=== PATIENT | female | born 1995 | race Caucasian/White ===

== ENCOUNTER 2018-03-18 06:10 | Emergency (ER) | payer OTHER ==
[2018-03-18] MEDS: PERCOCET 5MG/325MG TAB PO (07:48)
== END 2018-03-18 07:59 | disposition home or self-care (01) ==
LOC: M ED 06:10
DX: O99.89 Other specified diseases and conditions complicating pregnancy, childbirth and the puerperium (principal); M43.6 Torticollis; S16.1XXA Strain of muscle, fascia and tendon at neck level, initial encounter; X50.9XXA Other and unspecified overexertion or strenuous movements or postures, initial encounter; Y92.018 Other place in single-family (private) house as the place of occurrence of the external cause; Z3A.34 34 weeks gestation of pregnancy
CPT/HCPCS: 99282

== ENCOUNTER 2018-04-26 19:17 | Inpatient (IN) | payer OTHER ==
[2018-04-26 22:43] LABS: HEMATOCRIT 33.4 % (36.0-47.0); HEMOGLOBIN 11.3 g/dl (12.0-15.5); MEAN CORPUSCULAR HEMOGLOBIN 30.1 pg (27.0-33.0); MEAN CORPUSCULAR HGB CONC 33.8 g/dl (32.0-36.5); MEAN CORPUSCULAR VOLUME 88.8 fl (80.0-96.0); PLATELET COUNT, AUTOMATED 240 10^3/uL (150-450); RED BLOOD COUNT 3.76 10^6/uL (4.00-5.40); RED CELL DISTRIBUTION WIDTH 13.1 % (11.5-14.5); WHITE BLOOD COUNT 13.1 10^3/uL (4.0-10.0)
[2018-04-26] MEDS ORDERED: OXYTOCIN DRIP 30 UNITS in APPROPRIATE DILUENT 1 EA IV (22:45)
[2018-04-26] MEDS: BUTORPHANOL 2 MG/ML INJ (J0595) IV (23:41)
[2018-04-27] MEDS: LACTATED RINGER'S 1000 ML IV (01:22)
[2018-04-27] MEDS ORDERED: TERBUTALINE SULFATE 1 MG/ML VIAL (J3105) As Ordered (02:22)
[2018-04-27] MEDS: TERBUTALINE SULFATE 1 MG/ML VIAL (J3105) SC (02:24)
[2018-04-27] MEDS ORDERED: FENTANYL 2MCG/ML ROPIVACAINE 0.2% IN 0.9% NACL 200ML IVBAG As Ordered (03:16)
[2018-04-27] MEDS ORDERED: ONDANSETRON 4MG/2ML VIAL (J2405) IV (05:30)
[2018-04-27] MEDS ORDERED: diphenhydrAMINE INJ 50MG/ML VIAL (J1200) IV (05:30)
[2018-04-27] MEDS ORDERED: NALOXONE INJ 0.4 MG/1 ML VIAL (J2310) IV (05:30)
[2018-04-27] MEDS ORDERED: REFRIGERATOR IV KEYS XX (05:30)
[2018-04-27] MEDS ORDERED: LACTATED RINGER'S 1000 ML IV (05:30)
[2018-04-27] MEDS ORDERED: EPIDURAL COMMENT XX (05:30)
[2018-04-27] MEDS ORDERED: EPIDURAL/PCA KEYS XX (05:30)
[2018-04-27] MEDS ORDERED: ePHEDrine SULFATE 25 MG/5 ML(5MG/ML) SYRINGE IV (05:30)
[2018-04-27] MEDS ORDERED: FENTANYL/ROPIVACAINE/NACL BAG 200 ML EPIDURAL (05:30)
[2018-04-27] MEDS: LR 1,000 ML IV ×2 (06:28→08:21)
[2018-04-27] MEDS: ACETAMINOPHEN TAB 650MG DOSE (2X325MG) PO ×2 (08:22→17:44)
[2018-04-27 09:26] LABS: CORD GAS ABE V -9.3; CORD GAS HCO3 V 16.9 MEQ/L; CORD GAS PCO2 V 37.8 mmHg; CORD GAS PH V 7.268 UNITS; CORD GAS PO2 V 25.9 mmHg; CORD GAS TCO2 V 18.1 MEQ/L
[2018-04-27 09:28] LABS: CORD GAS O2 SAT V 40.2 %
[2018-04-27] MEDS: OXYTOCIN DRIP 30 UNITS in APPROPRIATE DILUENT 1 EA IV (10:28)
[2018-04-27] MEDS ORDERED: RHOGAM 300 MCG (1500 IU) INJ (J2790) IM (10:30)
[2018-04-27] MEDS ORDERED: METOCLOPRAMIDE INJ 10MG/2ML VIAL (J2765) IV (10:30)
[2018-04-27] MEDS ORDERED: MEASLES,MUMPS,RUBELLA VACCINE INJ (MMR-II) (90707) SC (10:30)
[2018-04-27] MEDS: IBUPROFEN 800 MG TAB PO ×2 (12:54→20:47)
[2018-04-27] MEDS: DOCUSATE SODIUM 100 MG CAP PO ×2 (12:54→20:46)
[2018-04-27] MEDS: PRENATAL VITAMINS CHEWABLE TABLET PO (12:54)
[2018-04-27] MEDS ORDERED: INFLUENZA QUADRIVALENT PF VACCINE 0.5ML SYRINGE (90686) IM (20:00)
[2018-04-27] MEDS: DIBUCAINE 1% OINTMENT 30GM TOP (20:50)
[2018-04-28] MEDS: IBUPROFEN 800 MG TAB PO ×2 (05:32→14:52)
[2018-04-28] MEDS: DOCUSATE SODIUM 100 MG CAP PO (08:23)
[2018-04-28] MEDS: PRENATAL VITAMINS CHEWABLE TABLET PO (08:23)
[2018-04-28] MEDS: INFLUENZA QUADRIVALENT PF VACCINE 0.5ML SYRINGE (90686) IM (12:11)
== END 2018-04-28 17:46 | disposition home or self-care (01) | DRG 775 ==
LOC: M LDO 19:17 → M LDI 22:23 → M OBS 04-27 11:29
PROVIDERS: Obstetrics & Gynecology
PROC: 10E0XZZ Delivery of Products of Conception, External Approach (ICD-10-PCS; principal; 2018-04-27)
PROC: 0HQ9XZZ Repair Perineum Skin, External Approach (ICD-10-PCS; 2018-04-27)
PROC: 10907ZC Drainage of Amniotic Fluid, Therapeutic from Products of Conception, Via Natural or Artificial Opening (ICD-10-PCS; 2018-04-27)
DX: O77.0 Labor and delivery complicated by meconium in amniotic fluid (principal); Z3A.39 39 weeks gestation of pregnancy; O76 Abnormality in fetal heart rate and rhythm complicating labor and delivery; O70.0 First degree perineal laceration during delivery; O69.2XX0 Labor and delivery complicated by other cord entanglement, with compression, not applicable or unspecified; Z37.0 Single live birth

== ENCOUNTER 2018-09-09 15:40 | Emergency (ER) | payer OTHER ==
[~2018-09-09] VITALS: Ht 172.7 cm; Wt 54.5 kg
[~2018-09-09 15:40] MED LIST: IBUP-1114 PO; MAPA500T2 PO; NUPE1OIN2 TOP; PRENTAB9 PO
[2018-09-09] MEDS ORDERED: METOCLOPRAMIDE 10 MG TAB PO ONE (16:15)
[2018-09-09] MEDS ORDERED: ACETAMINOPHEN 325 MG TAB PO ONE (16:15)
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
[2018-09-09] MEDS ORDERED: REGL10TA6 PO ×3 (17:04→17:30)
[2018-09-09] MEDS ORDERED: IBUP-1022 PO ×3 (17:04→17:30)
[2018-09-09 17:09] VITALS: BP 110/56
== END 2018-09-09 17:30 | disposition home or self-care (01) ==
LOC: M ED 15:40
DX: S13.9XXA Sprain of joints and ligaments of unspecified parts of neck, initial encounter (principal); V48.5XXA Car driver injured in noncollision transport accident in traffic accident, initial encounter; Y92.9 Unspecified place or not applicable; Y93.9 Activity, unspecified; Y99.9 Unspecified external cause status; Z72.0 Tobacco use; Z79.899 Other long term (current) drug therapy

== ENCOUNTER 2018-09-23 15:13 | Emergency (ER) | payer OTHER ==
[~2018-09-23] VITALS: Ht 172.7 cm; Wt 54.5 kg
[~2018-09-23 15:13] MED LIST changes: +IBUP-1022 PO; +REGL10TA6 PO
[2018-09-23 16:33] VITALS: BP 105/53
== END 2018-09-23 16:36 | disposition home or self-care (01) ==
LOC: M ED 15:13
DX: F07.81 Postconcussional syndrome (principal); F17.200 Nicotine dependence, unspecified, uncomplicated

== ENCOUNTER 2018-11-24 18:13 | Emergency (ER) | payer OTHER ==
[~2018-11-24] VITALS: Ht 172.7 cm; Wt 57.5 kg
[2018-11-24] MEDS ORDERED: CELE1CAP7 (18:19)
[2018-11-24] MEDS ORDERED: TIZA4TAB4 (18:19)
[2018-11-24] MEDS ORDERED: IBUPROFEN 800 MG TAB PO ONE (18:30)
[2018-11-24 19:11] LABS: INFLUENZA A AMPLIFICATION NEGATIVE (NEGATIVE); INFLUENZA B AMPLIFICATION NEGATIVE (NEGATIVE)
[2018-11-24 20:33] VITALS: BP 96/55
== END 2018-11-24 20:52 | disposition home or self-care (01) ==
LOC: M ED 18:13
DX: B34.9 Viral infection, unspecified (principal); Z20.828 Contact with and (suspected) exposure to other viral communicable diseases; F17.210 Nicotine dependence, cigarettes, uncomplicated; Z79.899 Other long term (current) drug therapy; Z79.2 Long term (current) use of antibiotics

== ENCOUNTER 2019-08-29 15:10 | Emergency (ER) | payer OTHER ==
[~2019-08-29] VITALS: Ht 172.7 cm; Wt 56.5 kg
[~2019-08-29 15:10] MED LIST changes: +CELE1CAP7; +TIZA4TAB4
[2019-08-29] MEDS ORDERED: METH1TAB40 PO (15:23)
[2019-08-29 15:59] LABS: HEMATOCRIT 38.9 % (36.0-47.0); HEMOGLOBIN 12.5 g/dl (12.0-15.5); MEAN CORPUSCULAR HGB CONC 32.1 g/dl (32.0-36.5); MEAN CORPUSCULAR VOLUME 93.5 fl (80.0-96.0); PLATELET COUNT, AUTOMATED 243 10^3/uL (150-450); RED BLOOD COUNT 4.16 10^6/uL (4.00-5.40); WHITE BLOOD COUNT 5.3 10^3/uL (4.0-10.0)
[2019-08-29 16:24] LABS: AMPHETAMINES LEVEL URINE NEGATIVE (NEGATIVE); BARBITURATES URINE NEGATIVE (NEGATIVE); BENZODIAZEPINES URINE NEGATIVE (NEGATIVE); CANNABINOIDS URINE NEGATIVE (NEGATIVE); COCAINE METABOLITE URINE NEGATIVE (NEGATIVE); METHADONE URINE NEGATIVE (NEGATIVE); OPIATES URINE NEGATIVE (NEGATIVE); PHENCYCLIDINE URINE NEGATIVE (NEGATIVE)
[2019-08-29 16:31] LABS: ACETAMINOPHEN LEVEL < 2.0 UG/ML (10.0-30.0); ALT/SGPT 12 U/L (12-78); BILIRUBIN,DIRECT 0.2 MG/DL (0.0-0.2); BILIRUBIN,TOTAL 0.6 MG/DL (0.2-1.0); BLOOD UREA NITROGEN 10 MG/DL (7-18); CALCIUM LEVEL 8.6 MG/DL (8.5-10.1); CARBON DIOXIDE LEVEL 26 MEQ/L (21-32); CHLORIDE LEVEL 110 MEQ/L (98-107); ETHYL ALCOHOL (ETHANOL) 0.005 % (0.000-0.010); GLOMERULAR FILTRATION RATE > 60.0 (>60); GLUCOSE, FASTING 82 MG/DL (70-100); POTASSIUM SERUM 4.1 MEQ/L (3.5-5.1); SALICYLATE LEVEL < 1.7 MG/DL (5.0-30.0); SODIUM LEVEL 141 MEQ/L (136-145); TOTAL PROTEIN 6.9 GM/DL (6.4-8.2)
--- NOTE | 2019-08-29 18:41 | ECGEPIP ---
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
[2019-08-29] MEDS ORDERED: PIRO20CA2 PO (20:27)
[2019-08-30 02:03] VITALS: BP 124/72
== END 2019-08-30 02:05 ==
LOC: M ED 15:10
DX: F32.9 Major depressive disorder, single episode, unspecified (principal); R45.851 Suicidal ideations; R00.1 Bradycardia, unspecified; F17.200 Nicotine dependence, unspecified, uncomplicated; Z63.0 Problems in relationship with spouse or partner; Z79.899 Other long term (current) drug therapy
CPT/HCPCS: 80048; 80076; 80307; 84443; 85027; 93005; 99284; G0480

== ENCOUNTER 2019-10-03 15:37 | Inpatient (IN) | payer OTHER ==
[~2019-10-03] VITALS: Ht 172.7 cm; Wt 56.1 kg
[~2019-10-03 15:37] MED LIST changes: +METH1TAB40 PO; +PIRO20CA2 PO
[2019-10-03] MEDS ORDERED: MAGN400T2 PO (16:05)
[2019-10-03] MEDS ORDERED: PRAZ1CAP PO (16:05)
[2019-10-03] MEDS ORDERED: HYDR-4570 PO (16:05)
[2019-10-03] MEDS ORDERED: ROCA0.25 PO (16:05)
[2019-10-03] MEDS ORDERED: THIA100TA PO (16:08)
[2019-10-03] MEDS ORDERED: LIOT5TAB6 PO (16:08)
[2019-10-03] MEDS ORDERED: RIBO400T PO (16:08)
[2019-10-03] MEDS ORDERED: OYST500T12 PO (16:08)
[2019-10-03] MEDS ORDERED: VITA100T77 PO (16:08)
[2019-10-03] MEDS ORDERED: B-12100021 PO (16:08)
[2019-10-03 16:28] LABS: HEMOGLOBIN 12.5 g/dl (12.0-15.5); MEAN CORPUSCULAR HEMOGLOBIN 30.6 pg (27.0-33.0); MEAN CORPUSCULAR HGB CONC 32.9 g/dl (32.0-36.5); MEAN CORPUSCULAR VOLUME 93.1 fl (80.0-96.0); PLATELET COUNT, AUTOMATED 254 10^3/uL (150-450); RED BLOOD COUNT 4.08 10^6/uL (4.00-5.40); WHITE BLOOD COUNT 6.3 10^3/uL (4.0-10.0)
[2019-10-03 16:52] LABS: HCG, SERUM QUALITATIVE NEGATIVE (NEGATIVE)
[2019-10-03 16:54] LABS: AMPHETAMINES LEVEL URINE NEGATIVE (NEGATIVE); BARBITURATES URINE NEGATIVE (NEGATIVE); BENZODIAZEPINES URINE NEGATIVE (NEGATIVE); CANNABINOIDS URINE NEGATIVE (NEGATIVE); COCAINE METABOLITE URINE NEGATIVE (NEGATIVE); METHADONE URINE NEGATIVE (NEGATIVE); OPIATES URINE NEGATIVE (NEGATIVE); PHENCYCLIDINE URINE NEGATIVE (NEGATIVE)
[2019-10-03 17:02] LABS: ACETAMINOPHEN LEVEL < 2.0 UG/ML (10.0-30.0); ALT/SGPT 18 U/L (12-78); BILIRUBIN,DIRECT 0.1 MG/DL (0.0-0.2); BILIRUBIN,TOTAL 0.3 MG/DL (0.2-1.0); BLOOD UREA NITROGEN 14 MG/DL (7-18); CALCIUM LEVEL 8.7 MG/DL (8.5-10.1); CARBON DIOXIDE LEVEL 27 MEQ/L (21-32); CHLORIDE LEVEL 109 MEQ/L (98-107); CREATININE FOR GFR 0.88 MG/DL (0.55-1.30); ETHYL ALCOHOL (ETHANOL) < 0.003 % (0.000-0.010); GLOMERULAR FILTRATION RATE > 60.0 (>60); GLUCOSE, FASTING 90 MG/DL (70-100); SALICYLATE LEVEL < 1.7 MG/DL (5.0-30.0); SODIUM LEVEL 141 MEQ/L (136-145); TOTAL PROTEIN 6.8 GM/DL (6.4-8.2)
[2019-10-03] MEDS ORDERED: MAALOX 30 ML SUSP *UDC PO PRN (18:30)
[2019-10-03] MEDS ORDERED: MOM 30ML SUSPENSION UDC PO PRN (18:30)
[2019-10-03 19:57] VITALS: BP 119/67
[2019-10-03] MEDS: PYRIDOXINE 50 MG TAB PO SCH (21:00)
[2019-10-03] MEDS: traZODone 50 MG TAB PO PRN (21:00)
[2019-10-03] MEDS: MAGNESIUM OXIDE 400 MG TAB (MAG-OX) PO SCH (21:17)
[2019-10-03] MEDS: hydrOXYzine 25 MG TAB PO PRN (21:17)
[2019-10-03] MEDS: THIAMINE 100 MG TAB PO SCH (21:17)
[2019-10-03] MEDS: CYANOCOBALAMIN 500 MCG TAB PO SCH (21:17)
[2019-10-04 06:33] VITALS: BP 124/67
[2019-10-04] MEDS: CALCIUM/VITAMIN D 500 MG TAB PO SCH (08:35)
[2019-10-04] MEDS: CYANOCOBALAMIN 500 MCG TAB PO SCH ×2 (08:36→21:37)
[2019-10-04] MEDS: THIAMINE 100 MG TAB PO SCH ×2 (08:36→21:39)
[2019-10-04] MEDS: MAGNESIUM OXIDE 400 MG TAB (MAG-OX) PO SCH ×3 (08:36→21:38)
[2019-10-04] MEDS: hydrOXYzine 25 MG TAB PO PRN (08:36)
[2019-10-04] MEDS: NICOTINE 21MG/24HR 1 EA TRANSDERMAL TD SCH (10:13)
--- NOTE | 2019-10-04 10:19 | HPEPDOC ---
General Date of Admission Oct 03, 2019 at 18:27 Date of Service: Oct 04, 2019 Chief Complaint The patient is a 24-year-old female admitted with a reason for visit of Unspecified Depressive D/O. Source: Patient Exam Limitations: No limitations Timing/Duration: Getting worse Severity: Moderate Associated Symptoms: Denies Symptoms History of Present Illness Mrs. Lamas is a 24-year-old female who is admitted to the [facility] for suicidal thoughts and worsening depression. Patient reported that this has been going on for at least 2 days now. She has been experiencing worsening depression and thoughts of harming herself; she denied a plan. Patient reported that she had been scratching herself at home, with a goal of harming herself. She currently denies a plan and states that the thought of her and friend being upset is what stops her from actually harming herself. Patient denied any medical issues. Home Medications Scheduled Calcium Carbonate/Vitamin D3 (Oyster Shell 500-Vit D3 200 Tb) 1 Each Tablet, 1 TAB PO DAILY, (Reported) Cyanocobalamin (Vitamin B-12) (B-12) 1,000 Mcg Tablet, 1,000 MCG PO BID, (Reported) Hydroxyzine HCl (Hydroxyzine HCl) 25 Mg Tablet, 25 MG PO QHS, (Reported) HAS NOT STARTED HYDROXYZINE Liothyronine Sodium (Liothyronine Sodium) 5 Mcg Tablet, 5 MCG PO QHS, (Reported) Magnesium Oxide (Magnesium Oxide) 400 Mg Tablet, 400 MG PO TID, (Reported) Prazosin Hcl (Prazosin HCl) 1 Mg Capsule, 1 MG PO QHS, (Reported) HAS NOT STARTED SCRIPT YEMylene Pyridoxine HCl (Vitamin B6) (Vitamin B-6) 100 Mg Tablet, 200 MG PO QPM, (Reported) Riboflavin (Vitamin B2) (Riboflavin) 400 Mg Tablet, 400 MG PO DAILY, (Reported) Thiamine Hcl (Vitamin B-1) 100 Mg Tablet, 100 MG PO BID, (Reported) Allergies Coded Allergies: No Known Allergies (Unverified , 03/18/18) Past Medical History Medical History From the medical record patient is being treated for hypothyroidism Surgical History None Family History Significant Family History: Noncontributory Social History * Smoker: current smoker, cigarettes (5 cigarettes per day) Alcohol: occationally Drugs: denies Recent Travel/Sick Contacts: Denies: Recent travel, Recent sick contacts A-FIB/CHADSVASC A-FIB History Current/History of A-Fib/PAF?: No Current PO Anticoag Therapy: No Review of Systems Constitutional: Denies: Chills, Fever, Night Sweats Eyes: Denies: Pain ENT: Denies: Head Aches Skin: Denies: Rash Pulmonary: Denies: Dyspnea, Cough Cardiovascular: Denies: Chest Pain, Palpitations, Edema Gastrointestinal: Denies: Nausea, Vomiting, Abdominal Pain, Diarrhea Genitourinary: Reports: Frequency; Denies: Dysuria, Retention Hematologic: Denies: Bruising Musculoskeletal: Denies: Neck Pain, Back Pain, Joint Pain, Muscle Pain, Spasms Neurological: Denies: Weakness, Numbness Psych: Reports: Depression, Thoughts of Self Harm; Denies: Memory Issues, Thoughts of Harming Other Physical Examination General Exam: Positive: Alert, Cooperative, No Acute Distress Eye Exam: Positive: PERRLA, Conjunctiva & lids normal, EOMI; Negative: Sclera icteric ENT Exam: Positive: Atraumatic, Mucous membr. moist/pink, Pharynx Normal, Tongue Midline Neck Exam: Positive: Supple; Negative: thyromegaly Chest Exam: Positive: Clear to auscultation, Normal air movement Heart Exam: Positive: Rate Normal, Regular Rhythm, Normal S1, Normal S2; Negative: Murmurs, Rubs Telemetry: Positive: No significant arrhythmia Abdomen Exam: Positive: Normal bowel sounds, Soft; Negative: Tenderness Extremity Exam: Positive: Normal pulses; Negative: Clubbing, Cyanosis, Edema Skin Exam: Positive: Nl turgor and temperature Neuro Exam: Positive: Normal Gait, Normal Speech, Strength at 5/5 X4 ext, Cranial Nerves 3-12 NL Psych Exam: Positive: Oriented x 3; Negative: Mood NL (Depressed) Vital Signs Vital Signs Date Time Temp Pulse Resp B/P (MAP) Pulse Ox O2 Delivery O2 Flow Rate FiO2 10/04/19 09:21 Room Air 10/04/19 06:33 98.7 83 20 124/67 (86) 10/03/19 19:57 99 Laboratory Data Labs 24H Laboratory Tests 2 10/03/19 16:13: Nucleated Red Blood Cells % (auto) 0.0, Anion Gap 5L, Glomerular Filtration Rate > 60.0, Calcium Level 8.7, Total Bilirubin 0.3, Direct Bilirubin 0.1, Aspartate Amino Transf (AST/SGOT) 9, Alanine Aminotransferase (ALT/SGPT) 18, Alkaline Phosphatase 68, Total Protein 6.8, Albumin 4.0, Albumin/Globulin Ratio 1.43, Th yroid Stimulating Hormone (TSH) 1.110, Human Chorionic Gonadotropin, Qual NEGATIVE, Salicylates Level < 1.7L, Urine Opiates Screen NEGATIVE, Urine Methadone Screen NEGATIVE, Acetaminophen Level < 2.0L, Urine Barbiturates Screen NEGATIVE, Urine Phencyclidine Screen NEGATIVE, Urine Amphetamines Screen NEGATIVE, Urine Benzodiazepines Screen NEGATIVE, Urine Cocaine Metabolite Screen NEGATIVE, Urine Cannabinoids Screen NEGATIVE, Ethyl Alcohol Level < 0.003 CBC/BMP Laboratory Tests 10/03/19 16:13 Assessment/Plan Mrs. Lamas is a 24-year-old female who is admitted to the [facility] for suicidal thoughts and worsening depression. Patient reported that this has been going on for at least 2 days now. She has been experiencing worsening depression and thoughts of harming herself; she denied a plan. Patient reported that she had been scratching herself at home, with a goal of harming herself. She currently denies a plan and states that the thought of her and friend being upset is what stops her from actually harming herself. Patient denied any medical issu es. Patient has a past medical history which includes: Depression, suicidal ideation. #1. Depression with suicide ideation. Management per psychiatry. #2 Hypothyroidism. Liothyronine not available on hospital formulary. Replace with Levothyroxine at the equivalent dose. Medicine will sign off at this time. Please feel free to reconsult as needed. Plan / VTE VTE Prophylaxis Ordered?: No RHONDA WILLAMS PA-C Oct 04, 2019 10:19
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
[2019-10-04] MEDS: LEVOTHYROXINE 25MCG TABLET (0.025MG) PO SCH (11:34)
[2019-10-04] MEDS: VENLAFAXINE **XR** 37.5 MG CAPSULE PO SCH (15:56)
[2019-10-04] MEDS ORDERED: OXAZEPAM 10 MG CAP PO ONE (16:00)
[2019-10-04 16:27] VITALS: BP 109/62
[2019-10-04] MEDS: ACETAMINOPHEN TAB 650MG DOSE (2X325MG) PO PRN (17:36)
[2019-10-04] MEDS: PYRIDOXINE 50 MG TAB PO SCH (21:38)
[2019-10-04] MEDS: traZODone 50 MG TAB PO PRN (21:39)
[2019-10-05] MEDS: ACETAMINOPHEN TAB 650MG DOSE (2X325MG) PO PRN ×2 (00:27→14:23)
[2019-10-05] MEDS: LEVOTHYROXINE 25MCG TABLET (0.025MG) PO SCH (06:10)
[2019-10-05 07:17] VITALS: BP 109/56
[2019-10-05] MEDS: CYANOCOBALAMIN 500 MCG TAB PO SCH ×2 (08:21→20:55)
[2019-10-05] MEDS: THIAMINE 100 MG TAB PO SCH ×2 (08:21→20:55)
[2019-10-05] MEDS: CALCIUM/VITAMIN D 500 MG TAB PO SCH (08:21)
[2019-10-05] MEDS: VENLAFAXINE **XR** 37.5 MG CAPSULE PO SCH (08:21)
[2019-10-05] MEDS: MAGNESIUM OXIDE 400 MG TAB (MAG-OX) PO SCH ×3 (08:21→20:55)
[2019-10-05] MEDS: NICOTINE 21MG/24HR 1 EA TRANSDERMAL TD SCH (08:22)
[2019-10-05] MEDS: hydrOXYzine 25 MG TAB PO PRN ×2 (08:24→20:56)
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
[2019-10-05 16:24] VITALS: BP 119/56
[2019-10-05] MEDS: PYRIDOXINE 50 MG TAB PO SCH (20:54)
[2019-10-05] MEDS: traZODone 50 MG TAB PO PRN (20:56)
[2019-10-05] MEDS ORDERED: VENLAFAXINE **XR** 37.5 MG CAPSULE PO SCH (21:00)
[2019-10-06] MEDS: LEVOTHYROXINE 25MCG TABLET (0.025MG) PO SCH (06:02)
[2019-10-06 06:56] VITALS: BP 137/57
[2019-10-06] MEDS: THIAMINE 100 MG TAB PO SCH ×2 (08:31→20:18)
[2019-10-06] MEDS: NICOTINE 21MG/24HR 1 EA TRANSDERMAL TD SCH (08:31)
[2019-10-06] MEDS: CALCIUM/VITAMIN D 500 MG TAB PO SCH (08:32)
[2019-10-06] MEDS: MAGNESIUM OXIDE 400 MG TAB (MAG-OX) PO SCH ×3 (08:32→20:18)
[2019-10-06] MEDS: CYANOCOBALAMIN 500 MCG TAB PO SCH ×2 (08:32→20:18)
[2019-10-06] MEDS: hydrOXYzine 25 MG TAB PO PRN ×2 (08:32→20:18)
--- NOTE | 2019-10-06 10:51 | MHIPNPDOC ---
[facility] Progress Note Progress Note Inpatient Progress Note Karin Lamas MRN: N/A Date of : N/A Date of Service: 10/05/2019 History of Present Illness The patient is a 24-year-old woman with a history of reported trauma presents to [facility] after reportedly making suicidal statements. The patient has a history of being admitted and has generally been doing poorly as an outpatient. Interval History Patient met with, reports that she is feeling more depressed and fatigued, tried to attend groups but was too tiered to attend all. Reports that she is still motivated to get better Review Of Systems General: Denies fever or appetite changes Cardiovascular: Denies Chest pain or palpations GI: Denies Nausea, vomiting, or bowel changes Respiratory: Denies shortness of breath or cough Neuro: Denies dizziness, tremors Derm: Denies any rashes or pruritus : Denies any dysuria or urinary problems MSK: Denies any muscle tightness or stiffness HEENT: Denies any vision changes or headaches Psychotherapy None on this visit. Vital Signs Reviewed. Mental Status Examination General: Well dressed with good hygiene Speech: Spontaneous and fluid Thought processes: Linear and logical MSK: Smooth and coordinated gait, no signs of tremors or involuntary orofacial movements Thought content: Hopelessness. Abstract reasoning, and computation: Intact Description of associations: Intact Description of abnormal or psychotic thoughts: Denies any suicidal or homicidal ideation at this time. Denies any auditory or visual hallucinations. Does not appear to be internally preoccupied. Judgment: fair Insight: fair Orientation: Alert and orientated 3 Cognition: Grossly normal Recent and remote memory: Intact Attention span and concentration: Intact Fund of knowledge: Adequate Mood: "fine" Affect: Less irritable but more dysthymic. Diagnoses PTSD, chronic. MDD, unspecified. Assessment and Plan PTSD/MDD: Continue venlafaxine 37.5 mg changed to evening in case sedation from medication. Disposition The patient will need a further inpatient stay to treat her significant trauma and depression symptoms that impair her significantly and make it difficult for her to succeed as an outpatient. At this time, she still has significant symptoms that pose her a risk if she is not properly treated. Time Spent 15 minutes [id number]. Vital Signs Vital Signs Date Time Temp Pulse Resp B/P (MAP) Pulse Ox O2 Delivery O2 Flow Rate FiO2 10/06/19 06:56 98.4 81 16 137/57 (83) 10/05/19 09:48 Room Air 10/03/19 19:57 99 Current Medications Current Medications Medications (Trade) Dose Ordered Sig/Paula Route PRN Reason Start Time Stop Time Status Last Admin Dose Admin Acetaminophen (Tylenol Tab) 650 mg Q6HP PRN PO HEADACHE or DISCOMFORT 10/03/19 18:30 10/05/19 14:23 Al Hydrox/Mg Hydrox/Simethicone (Mylanta) 30 ml Q4HP PRN PO HEARTBURN/INDIGESTION 10/03/19 18:30 Calcium/Vitamin D (Oscal D) 1,000 mg DAILY PO 10/04/19 09:00 10/06/19 08:32 Cyanocobalamin (Vitamin B12) 1,000 mcg BID PO 10/03/19 21:00 10/06/19 08:32 Home Med (Med Rec Complete!) ASDIRECTED XX 10/03/19 17:30 10/03/19 17:32 DC Hydroxyzine HCl (Atarax) 25 mg BID PRN PO ANXIETY 10/03/19 20:45 10/06/19 08:32 Levothyroxine Sodium (Synthroid) 25 mcg DAILY@0600 PO 10/04/19 06:00 10/06/19 06:02 Magnesium Hydroxide (Milk Of Magnesia) 30 ml DAILYPRN PRN PO CONSTIPATION 10/03/19 18:30 Magnesium Oxide (Mag-Ox) 400 mg TID PO 10/03/19 21:00 10/06/19 08:32 Nicotine (Nicoderm Cq 21mg) 1 patch DAILY TD 10/04/19 09:00 10/06/19 08:31 Pyridoxine HCl (Vitamin B6) 200 mg QHS PO 10/03/19 21:00 10/05/19 20:54 Thiamine HCl (Thiamine HCl) 100 mg BID PO 10/03/19 21:00 10/06/19 08:31 Trazodone HCl (Desyrel) 50 mg QHSP PRN PO INSOMNIA 10/03/19 18:30 10/05/19 20:56 Venlafaxine HCl (Effexor Xr) 37.5 mg DAILY PO 10/04/19 09:00 10/05/19 16:36 DC 3/5/20 08:21 Venlafaxine HCl (Effexor Xr) 37.5 mg QHS PO 10/05/19 21:00 10/05/19 20:55 Allergies Coded Allergies: No Known Allergies (Unverified , 03/18/18) JOHAN SALAZAR 6, 2020 10:51
[2019-10-06] MEDS: BACITRACIN OINT 30GM TOP SCH ×2 (13:22→20:18)
[2019-10-06 16:12] VITALS: BP 109/62
[2019-10-06] MEDS: PYRIDOXINE 50 MG TAB PO SCH (20:18)
[2019-10-06] MEDS: VENLAFAXINE **XR** 75MG CAPSULE PO SCH (20:18)
[2019-10-06] MEDS: RAMELTEON 8 MG TAB (ROZEREM) PO SCH (20:18)
[2019-10-07] MEDS ORDERED: hydrOXYzine 25 MG TAB PO STA (00:55)
[2019-10-07 05:53] VITALS: BP 98/48
[2019-10-07] MEDS: LEVOTHYROXINE 25MCG TABLET (0.025MG) PO SCH (06:05)
[2019-10-07] MEDS: BACITRACIN OINT 30GM TOP SCH ×2 (08:35→20:13)
[2019-10-07] MEDS: MAGNESIUM OXIDE 400 MG TAB (MAG-OX) PO SCH ×3 (08:36→20:12)
[2019-10-07] MEDS: NICOTINE 21MG/24HR 1 EA TRANSDERMAL TD SCH (08:36)
[2019-10-07] MEDS: THIAMINE 100 MG TAB PO SCH ×2 (08:36→20:12)
[2019-10-07] MEDS: CALCIUM/VITAMIN D 500 MG TAB PO SCH (08:36)
[2019-10-07] MEDS: CYANOCOBALAMIN 500 MCG TAB PO SCH ×2 (08:36→20:12)
[2019-10-07] MEDS: hydrOXYzine 25 MG TAB PO PRN ×2 (12:05→20:12)
[2019-10-07 16:13] VITALS: BP 98/56
[2019-10-07] MEDS: RAMELTEON 8 MG TAB (ROZEREM) PO SCH (20:12)
[2019-10-07] MEDS: VENLAFAXINE **XR** 75MG CAPSULE PO SCH (20:12)
[2019-10-07] MEDS: PYRIDOXINE 50 MG TAB PO SCH (20:12)
[2019-10-08] MEDS: LEVOTHYROXINE 25MCG TABLET (0.025MG) PO SCH (06:14)
[2019-10-08 06:21] VITALS: BP 109/58
[2019-10-08] MEDS: BACITRACIN OINT 30GM TOP SCH ×2 (08:27→20:37)
[2019-10-08] MEDS: NICOTINE 21MG/24HR 1 EA TRANSDERMAL TD SCH (08:27)
[2019-10-08] MEDS: CALCIUM/VITAMIN D 500 MG TAB PO SCH (08:29)
[2019-10-08] MEDS: CYANOCOBALAMIN 500 MCG TAB PO SCH ×2 (08:29→20:37)
[2019-10-08] MEDS: MAGNESIUM OXIDE 400 MG TAB (MAG-OX) PO SCH ×3 (08:29→20:37)
[2019-10-08] MEDS: hydrOXYzine 25 MG TAB PO PRN ×2 (08:29→20:36)
[2019-10-08] MEDS: THIAMINE 100 MG TAB PO SCH ×2 (08:29→20:37)
--- NOTE | 2019-10-08 09:29 | MHIPN ---
DATE: 10/07/2019 Patient states "I am feeling, very, very anxious today". Last night she says she could not sleep and was feeling very anxious and so she was given an extra dose of Atarax 25 mg and as a result since it is ordered twice a day, she could not get her Atarax this morning. She says that she feels depressed, hopeless, helpless. MENTAL STATUS EXAM: She is alert and oriented times three, eye contact is poor. Psychomotor activity is increased due to anxiety. There is no formal thought disorder noted. Mood is depressed and anxious. Affect is full range and appropriate. She is not psychotic, suicidal or homicidal. Concentration is fair. Insight and judgment is poor. DIAGNOSIS: Post-traumatic stress disorder (PTSD), chronic. TREATMENT PLAN: The patient will be further evaluated and monitored for her ongoing anxiety and depression and we will go ahead and increase her Atarax to 25 mg every 4 hours as needed for anxiety with a maximum daily dose of three doses.
[2019-10-08 16:22] VITALS: BP 123/72
[2019-10-08] MEDS: VENLAFAXINE **XR** 75MG CAPSULE PO SCH (20:36)
[2019-10-08] MEDS: PYRIDOXINE 50 MG TAB PO SCH (20:37)
[2019-10-08] MEDS: RAMELTEON 8 MG TAB (ROZEREM) PO SCH (20:37)
[2019-10-09] MEDS: LEVOTHYROXINE 25MCG TABLET (0.025MG) PO SCH (06:02)
[2019-10-09 06:18] VITALS: BP 99/55
[2019-10-09] MEDS: BACITRACIN OINT 30GM TOP SCH ×2 (08:27→20:08)
[2019-10-09] MEDS: hydrOXYzine 25 MG TAB PO PRN ×2 (08:28→20:05)
[2019-10-09] MEDS: MAGNESIUM OXIDE 400 MG TAB (MAG-OX) PO SCH ×3 (08:28→20:05)
[2019-10-09] MEDS: CALCIUM/VITAMIN D 500 MG TAB PO SCH (08:28)
[2019-10-09] MEDS: CYANOCOBALAMIN 500 MCG TAB PO SCH ×2 (08:28→20:05)
[2019-10-09] MEDS: NICOTINE 21MG/24HR 1 EA TRANSDERMAL TD SCH (08:28)
[2019-10-09] MEDS: THIAMINE 100 MG TAB PO SCH ×2 (08:28→20:06)
--- NOTE | 2019-10-09 10:58 | MHIPNPDOC ---
[facility] Progress Note Progress Note Inpatient Progress Note Karin Lamas MRN: N/A Date of : N/A Date of Service: 10/09/2019 History of Present Illness The patient is a 24-year-old woman with a history of reported trauma presents to [facility] after reportedly making suicidal statements. The patient has a history of being admitted and has generally been doing poorly as an outpatient. Interval History The patient was met with today. She had a good weekend and had made good improvement on her depression. She reports that her low mood, loss of interest and concentration problems have improved. She reports her anxiety is better after being increased on hydroxyzine. She has been attending groups well, rupinder licona with staffed with notably less irritability. No major behavioral problems over the weekend. Is feeling increasingly ready to be discharged. Review Of Systems General: Denies fever or appetite changes Cardiovascular: Denies Chest pain or palpations GI: Denies Nausea, vomiting, or bowel changes Respiratory: Denies shortness of breath or cough Neuro: Denies dizziness, tremors Derm: Denies any rashes or pruritus : Denies any dysuria or urinary problems MSK: Denies any muscle tightness or stiffness HEENT: Denies any vision changes or headaches Psychotherapy None on this visit. Vital Signs Reviewed. Mental Status Examination General: Well dressed with good hygiene Speech: Spontaneous and fluid Thought processes: Linear and logical MSK: Smooth and coordinated gait, no signs of tremors or involuntary orofacial movements Thought content: Future orientated. Abstract reasoning, and computation: Intact Description of associations: Intact Description of abnormal or psychotic thoughts: Denies any suicidal or homicidal ideation at this time. Denies any auditory or visual hallucinations. Does not appear to be internally preoccupied. Judgment: fair Insight: fair Orientation: Alert and orientated 3 Cognition: Grossly normal Recent and remote memory: Intact Attention span and concentration: Intact Fund of knowledge: Adequate Mood: "good" Affect: More euthymic. Diagnoses PTSD, chronic. MDD, unspecified. Assessment and Plan PTSD/MDD: Increase Effexor to 112 mg. Disposition Discharge on Wednesday as patient is approaching stability. Time Spent 15 minutes [id number]. Wednesday Vital Signs Vital Signs Date Time Temp Pulse Resp B/P (MAP) Pulse Ox O2 Delivery O2 Flow Rate FiO2 10/09/19 06:18 98.3 58 14 99/55 (70) 10/05/19 09:48 Room Air 10/03/19 19:57 99 Current Medications Current Medications Medications (Trade) Dose Ordered Sig/Paula Route PRN Reason Start Time Stop Time Status Last Admin Dose Admin Acetaminophen (Tylenol Tab) 650 mg Q6HP PRN PO HEADACHE or DISCOMFORT 10/03/19 18:30 10/05/19 14:23 Al Hydrox/Mg Hydrox/Simethicone (Mylanta) 30 ml Q4HP PRN PO HEARTBURN/INDIGESTION 10/03/19 18:30 10/07/19 11:42 Bacitracin (Bacitracin Oint) 1 dose BID TOP 10/06/19 09:00 10/09/19 08:27 Calcium/Vitamin D (Oscal D) 1,000 mg DAILY PO 10/04/19 09:00 10/09/19 08:28 Cyanocobalamin (Vitamin B12) 1,000 mcg BID PO 10/03/19 21:00 10/09/19 08:28 Home Med (Med Rec Complete!) ASDIRECTED XX 10/03/19 17:30 10/03/19 17:32 DC Hydroxyzine HCl (Atarax) 25 mg BID PRN PO ANXIETY 10/03/19 20:45 10/07/19 11:54 DC 10/06/19 20:18 Hydroxyzine HCl (Atarax) 25 mg Q4HP PRN PO ANXIETY/AGITATION 10/07/19 12:00 10/09/19 08:28 Hydroxyzine HCl (Atarax) 25 mg STAT STAT PO 10/07/19 00:55 10/07/19 00:57 DC 10/07/19 01:00 Levothyroxine Sodium (Synthroid) 25 mcg DAILY@0600 PO 10/04/19 06:00 10/09/19 06:02 Magnesium Hydroxide (Milk Of Magnesia) 30 ml DAILYPRN PRN PO CONSTIPATION 10/03/19 18:30 Magnesium Oxide (Mag-Ox) 400 mg TID PO 10/03/19 21:00 10/09/19 08:28 Nicotine (Nicoderm Cq 21mg) 1 patch DAILY TD 10/04/19 09:00 10/09/19 08:28 Pyridoxine HCl (Vitamin B6) 200 mg QHS PO 10/03/19 21:00 10/08/19 20:37 Ramelteon (Rozerem) 8 mg QHS PO 10/06/19 21:00 10/08/19 20:37 Thiamine HCl (Thiamine HCl) 100 mg BID PO 10/03/19 21:00 10/09/19 08:28 Trazodone HCl (Desyrel) 50 mg QHSP PRN PO INSOMNIA 10/03/19 18:30 10/06/19 15:18 DC 10/05/19 20:56 Venlafaxine HCl (Effexor Xr) 37.5 mg DAILY PO 10/04/19 09:00 10/05/19 16:36 DC 10/05/19 08:21 Venlafaxine HCl (Effexor Xr) 37.5 mg QHS PO 10/05/19 21:00 10/06/19 15:22 DC 10/05/19 20:55 Venlafaxine HCl (Effexor Xr) 75 mg QHS PO 10/06/19 21:00 10/08/19 20:36 Allergies Coded Allergies: No Known Allergies (Unverified , 03/18/18) JOHAN SALAZAR 9, 2020 10:58
[2019-10-09 15:40] VITALS: BP 107/56
[2019-10-09] MEDS: ACETAMINOPHEN TAB 650MG DOSE (2X325MG) PO PRN (20:05)
[2019-10-09] MEDS: PYRIDOXINE 50 MG TAB PO SCH (20:05)
[2019-10-09] MEDS: VENLAFAXINE **XR** 37.5 MG CAPSULE PO SCH (20:05)
[2019-10-09] MEDS: VENLAFAXINE **XR** 75MG CAPSULE PO SCH (20:05)
[2019-10-09] MEDS: RAMELTEON 8 MG TAB (ROZEREM) PO SCH (20:06)
[2019-10-10] MEDS: LEVOTHYROXINE 25MCG TABLET (0.025MG) PO SCH (05:50)
[2019-10-10 06:10] VITALS: BP 117/67
[2019-10-10] MEDS: BACITRACIN OINT 30GM TOP SCH ×2 (08:23→20:26)
[2019-10-10] MEDS: THIAMINE 100 MG TAB PO SCH ×2 (08:26→20:26)
[2019-10-10] MEDS: MAGNESIUM OXIDE 400 MG TAB (MAG-OX) PO SCH ×3 (08:26→20:25)
[2019-10-10] MEDS: CYANOCOBALAMIN 500 MCG TAB PO SCH ×2 (08:28→20:23)
[2019-10-10] MEDS: hydrOXYzine 25 MG TAB PO PRN ×3 (08:28→20:26)
[2019-10-10] MEDS: CALCIUM/VITAMIN D 500 MG TAB PO SCH (08:28)
[2019-10-10] MEDS: NICOTINE 21MG/24HR 1 EA TRANSDERMAL TD SCH (08:29)
--- NOTE | 2019-10-10 10:47 | MHIPNPDOC ---
[facility] Progress Note Progress Note Inpatient Progress Note Karin Lamas MRN: N/A Date of : N/A Date of Service: 10/10/2019 History of Present Illness The patient is a 24-year-old woman with a history of reported trauma presents to [facility] after reportedly making suicidal statements. The patient has a history of being admitted and has generally been doing poorly as an outpatient. Interval History The patient is met with today. She reports that she is doing well. She reports a relatively normal sleep pattern and that she has been attending groups. She has been doing well reporting that her depression, anxiety have made great progress. She reports some ambivalence about leaving and fear for how things will go once she leaves. However, she is doing well with no behavioral problems, staff report that she is doing very well. Review Of Systems General: Denies fever or appetite changes Cardiovascular: Denies Chest pain or palpations GI: Denies Nausea, vomiting, or bowel changes Respiratory: Denies shortness of breath or cough Neuro: Denies dizziness, tremors Derm: Denies any rashes or pruritus : Denies any dysuria or urinary problems MSK: Denies any muscle tightness or stiffness HEENT: Denies any vision changes or headaches Psychotherapy None on this visit. Vital Signs Reviewed. Mental Status Examination General: Well dressed with good hygiene Speech: Spontaneous and fluid Thought processes: Linear and logical MSK: Smooth and coordinated gait, no signs of tremors or involuntary orofacial movements Thought content: Future orientated. Abstract reasoning, and computation: Intact Description of associations: Intact Description of abnormal or psychotic thoughts: Denies any suicidal or homicidal ideation at this time. Denies any auditory or visual hallucinations. Does not appear to be internally preoccupied. Judgment: fair Insight: fair Orientation: Alert and orientated 3 Cognition: Grossly normal Recent and remote memory: Intact Attention span and concentration: Intact Fund of knowledge: Adequate Mood: "good" Affect: More euthymic. Diagnoses PTSD, chronic. MDD, unspecified. Assessment and Plan PTSD/MDD: Continue Effexor 112.5 mg daily. Disposition Discharge tomorrow. Time Spent 15 minutes [id number]. Wednesday Vital Signs Vital Signs Date Time Temp Pulse Resp B/P (MAP) Pulse Ox O2 Delivery O2 Flow Rate FiO2 10/10/19 06:10 99.2 65 16 117/67 (84) 10/05/19 09:48 Room Air Current Medications Current Medications Medications (Trade) Dose Ordered Sig/Paula Route PRN Reason Start Time Stop Time Status Last Admin Dose Admin Acetaminophen (Tylenol Tab) 650 mg Q6HP PRN PO HEADACHE or DISCOMFORT 10/03/19 18:30 10/09/19 20:05 Al Hydrox/Mg Hydrox/Simethicone (Mylanta) 30 ml Q4HP PRN PO HEARTBURN/INDIGESTION 10/03/19 18:30 10/07/19 11:42 Bacitracin (Bacitracin Oint) 1 dose BID TOP 10/06/19 09:00 10/09/19 08:27 Calcium/Vitamin D (Oscal D) 1,000 mg DAILY PO 10/04/19 09:00 10/10/19 08:28 Cyanocobalamin (Vitamin B12) 1,000 mcg BID PO 10/03/19 21:00 10/10/19 08:28 Home Med (Med Rec Complete!) ASDIRECTED XX 10/03/19 17:30 10/03/19 17:32 DC Hydroxyzine HCl (Atarax) 25 mg BID PRN PO ANXIETY 10/03/19 20:45 10/07/19 11:54 DC 10/06/19 20:18 Hydroxyzine HCl (Atarax) 25 mg Q4HP PRN PO ANXIETY/AGITATION 10/07/19 12:00 10/10/19 08:28 Hydroxyzine HCl (Atarax) 25 mg STAT STAT PO 10/07/19 00:55 10/07/19 00:57 DC 10/07/19 01:00 Levothyroxine Sodium (Synthroid) 25 mcg DAILY@0600 PO 10/04/19 06:00 10/10/19 05:50 Magnesium Hydroxide (Milk Of Magnesia) 30 ml DAILYPRN PRN PO CONSTIPATION 10/03/19 18:30 Magnesium Oxide (Mag-Ox) 400 mg TID PO 10/03/19 21:00 10/10/19 08:26 Nicotine (Nicoderm Cq 21mg) 1 patch DAILY TD 10/04/19 09:00 10/10/19 08:29 Pyridoxine HCl (Vitamin B6) 200 mg QHS PO 10/03/19 21:00 10/09/19 20:05 Ramelteon (Rozerem) 8 mg QHS PO 10/06/19 21:00 10/09/19 20:06 Thiamine HCl (Thiamine HCl) 100 mg BID PO 10/03/19 21:00 10/10/19 08:26 Trazodone HCl (Desyrel) 50 mg QHSP PRN PO INSOMNIA 10/03/19 18:30 10/06/19 15:18 DC 10/05/19 20:56 Venlafaxine HCl (Effexor Xr) 37.5 mg DAILY PO 10/04/19 09:00 10/05/19 16:36 DC 10/05/19 08:21 Venlafaxine HCl (Effexor Xr) 37.5 mg QHS PO 10/05/19 21:00 10/06/19 15:22 DC 10/05/19 20:55 Venlafaxine HCl (Effexor Xr) 37.5 mg QHS PO 10/09/19 21:00 10/09/19 20:05 Venlafaxine HCl (Effexor Xr) 75 mg QHS PO 10/06/19 21:00 10/09/19 15:38 DC 10/08/19 20:36 Venlafaxine HCl (Effexor Xr) 75 mg QHS PO 10/09/19 21:00 10/09/19 20:05 Allergies Coded Allergies: No Known Allergies (Unverified , 03/18/18) JOHAN SALAZAR 10, 2020 10:47
[2019-10-10] MEDS: ACETAMINOPHEN TAB 650MG DOSE (2X325MG) PO PRN (16:03)
[2019-10-10 18:03] VITALS: BP 126/56
[2019-10-10] MEDS: VENLAFAXINE **XR** 37.5 MG CAPSULE PO SCH (20:24)
[2019-10-10] MEDS: RAMELTEON 8 MG TAB (ROZEREM) PO SCH (20:24)
[2019-10-10] MEDS: PYRIDOXINE 50 MG TAB PO SCH (20:26)
[2019-10-10] MEDS: VENLAFAXINE **XR** 75MG CAPSULE PO SCH (20:26)
[2019-10-11] MEDS: LEVOTHYROXINE 25MCG TABLET (0.025MG) PO SCH (06:04)
[2019-10-11 06:43] VITALS: BP 123/68
[2019-10-11] MEDS: THIAMINE 100 MG TAB PO SCH (08:19)
[2019-10-11] MEDS: CALCIUM/VITAMIN D 500 MG TAB PO SCH (08:19)
[2019-10-11] MEDS: CYANOCOBALAMIN 500 MCG TAB PO SCH (08:19)
[2019-10-11] MEDS: NICOTINE 21MG/24HR 1 EA TRANSDERMAL TD SCH (08:19)
[2019-10-11] MEDS: BACITRACIN OINT 30GM TOP SCH (08:19)
[2019-10-11] MEDS: MAGNESIUM OXIDE 400 MG TAB (MAG-OX) PO SCH (08:19)
[2019-10-11] MEDS ORDERED: HYDR-3363 PO (10:40)
[2019-10-11] MEDS ORDERED: VENL37.598 PO (10:40)
[2019-10-11] MEDS ORDERED: MELA3TAB49 PO (10:40)
[2019-10-11] MEDS ORDERED: NICO21PAT TD (10:40)
--- NOTE | 2019-10-11 10:44 | MHDSPDOC ---
[facility] Discharge Summary Discharge Summary DATE OF ADMISSION: Oct 03, 2019 at 18:27 DATE OF DISCHARGE: 10/11/19 Discharge Karin Lamas MRN: N/A Date of : N/A Date of Service: 10/11/2019 Diagnoses PTSD, chronic. MDD, unspecified. History of Present Illness The patient is a 24-year-old woman with a history of reported trauma presents to [facility] after reportedly making suicidal statements. The patient has a history of being admitted and has generally been doing poorly as an outpatient. Consultants Involved Hospitalist/PCP screening Treatment and Progress On The Unit The patient was admitted to the inpatient unit and initially observed. She was started on Effexor 37.5 mg daily and increased to 112.5 mg with positive effects. The patient initially was depressed, suicidal, and fairly traumatized, however, after increasing her medications, she did well, attended groups frequently, and became friendly, and amenable with the staff. She had no major behavioral problems while on our unit and did extremely well with treatment. It appears that her previous psychiatrist that she had seen on an inpatient and had started her on purely vitamins, however it appears that these have been highly ineffective for her needs. Discharge Assessment 24-year-old woman with a history of trauma and depression presents and is treated with low-dose antidepressant, does well, improves and is able to be discharged in a much better state then she had arrived. The patient at the time of discharge did not meet criteria for involuntary admission/extension due to having a normal mental status exam, fair insight into the situation, They are engaged in the discharge process, as well as being friendly and amenable in behavioral control and havent been engaging in any observed concerning behavior or ideation recently. They decline voluntary extension/admission at this time and must be discharged in good arturo, as Im unable to make a case for holding the patient against their will. They may have historical risk factors of admissions and other interactions with psychiatry however, those are not modifiable from a clinical perspective. The patient will need to be discharged in good arturo. Mental Status Examination General: Well dressed with good hygiene Speech: Spontaneous and fluid Thought processes: Linear and logical MSK: Smooth and coordinated gait, no signs of tremors or involuntary orofacial movements Thought content: Future orientated Abstract reasoning, and computation: Intact Description of associations: Intact Description of abnormal or psychotic thoughts: Denies any suicidal or homicidal ideation. Denies any auditory or visual hallucinations. Does not appear to be responding to internal stimuli. Does not appear to be endorsing any bizarre or paranoid ideation. Judgment: fair Insight: fair Orientation: Alert and orientated 3 Cognition: Grossly normal Recent and remote memory: Intact Attention span and concentration: Intact Fund of knowledge: Adequate Mood: "okay" Affect: Euthymic with a full range Follow Up The social work team worked during the predischarge meeting in order to evaluate for further issues of lethality address them fully before discharge. They worked on safety planning with the patient's family members in order to ensure that the patient will have a safe and effective discharge. Time Spent The amount of time spent in the coordination of care for this patient was approximately 45 minutes. Wednesday Vital Signs/I&Os Vital Signs Date Time Temp Pulse Resp B/P (MAP) Pulse Ox O2 Delivery O2 Flow Rate FiO2 10/11/19 06:43 98.2 82 14 123/68 (86) 10/05/19 09:48 Room Air Medications Scheduled Calcium Carbonate/Vitamin D3 (Oyster Shell 500-Vit D3 200 Tb) 1 Each Tablet, 1 TAB PO DAILY, (Reported) Cyanocobalamin (Vitamin B-12) (B-12) 1,000 Mcg Tablet, 1,000 MCG PO BID, (Reported) Liothyronine Sodium (Liothyronine Sodium) 5 Mcg Tablet, 5 MCG PO QHS, (Reported) Melatonin (Melatonin) 3 Mg Tab.rapdis, 1 TAB PO QPM for sleep for 30 Days, #30 Nicotine (Nicotine Patch) 21 Mg Patch.td24, 1 PATCH TD DAILY for tobacco for 30 Days, #30 Venlafaxine HCl (Venlafaxine HCl ER) 37.5 Mg Cap.er.24h, 112.5 MG PO QHS for mood for 7 Days, #21 Scheduled PRN Hydroxyzine HCl (Hydroxyzine HCl) 25 Mg Tablet, 25 MG PO Q4HP PRN for ANXIETY/AGITATION for 7 Days, #20 Allergies Coded Allergies: No Known Allergies (Unverified , 03/18/18) JOHAN SALAZAR DO Oct 11, 2019 10:44
[2019-10-11] MEDS: hydrOXYzine 25 MG TAB PO PRN (12:06)
[2019-10-13] MEDS ORDERED: NICO21PAT TD (13:33)
[2019-10-13] MEDS ORDERED: MELA3TAB49 PO (13:33)
[2019-10-13] MEDS ORDERED: HYDR-3363 PO (13:33)
[2019-10-13] MEDS ORDERED: VENL37.598 PO (13:33)
== END 2019-10-11 13:30 | disposition home or self-care (01) | DRG 882 ==
LOC: M ED 15:37 → M ED INP 18:27 → M PSY 19:25
PROVIDERS: ADMIT Psychiatry & Neurology Psychiatry; ATTEND Psychiatry & Neurology Addiction Medicine
DX: F43.12 Post-traumatic stress disorder, chronic (principal); R45.851 Suicidal ideations; F32.9 Major depressive disorder, single episode, unspecified; Z62.810 Personal history of physical and sexual abuse in childhood; Z81.8 Family history of other mental and behavioral disorders; F17.210 Nicotine dependence, cigarettes, uncomplicated; E03.9 Hypothyroidism, unspecified

== ENCOUNTER 2019-12-15 19:03 | Emergency (ER) | payer OTHER ==
[~2019-12-15] VITALS: Ht 172.7 cm; Wt 59.8 kg
[~2019-12-15 19:03] MED LIST changes: +B-12100021 PO; +HYDR-3363 PO; +HYDR-4570 PO; +LIOT5TAB6 PO; +MAGN400T2 PO; +MELA3TAB49 PO; +NICO21PAT TD; +OYST500T12 PO; +PRAZ1CAP PO; +RIBO400T PO; +ROCA0.25 PO; +THIA100TA PO; +VENL37.598 PO; +VITA100T77 PO
[2019-12-15 19:04] VITALS: BP 121/55
[2019-12-15] MEDS ORDERED: TRAZ-257 PO (19:16)
[2019-12-15] MEDS ORDERED: PARO20TA3 PO (19:16)
[2019-12-15] MEDS ORDERED: ACETAMINOPHEN TAB 650MG DOSE (2X325MG) PO ONE (20:00)
--- NOTE | 2019-12-15 20:05 | REP ---
Clinical: Left shoulder pain Technique: Internal rotation, external rotation, and Y view. Findings: No acute fracture or dislocation. The acromioclavicular and glenohumeral joints are intact. No periarticular calcifications or degenerative changes are appreciated. Sub acromial space is normal. Surrounding soft tissues are unremarkable. Impression: Normal left shoulder radiographs. Electronically Signed by Sabino Chaudhari MD 12/15/2019 07:56 P
== END 2019-12-15 20:21 | disposition home or self-care (01) ==
LOC: M ED 19:03
DX: S46.912A Strain of unspecified muscle, fascia and tendon at shoulder and upper arm level, left arm, initial encounter (principal); X58.XXXA Exposure to other specified factors, initial encounter; Y92.89 Other specified places as the place of occurrence of the external cause; F33.9 Major depressive disorder, recurrent, unspecified; F41.9 Anxiety disorder, unspecified; F43.10 Post-traumatic stress disorder, unspecified; M41.9 Scoliosis, unspecified; Z79.899 Other long term (current) drug therapy; F17.210 Nicotine dependence, cigarettes, uncomplicated

== ENCOUNTER 2020-05-04 19:42 | Emergency (ER) | payer OTHER ==
[~2020-05-04] VITALS: Ht 172.7 cm; Wt 56.8 kg
[~2020-05-04 19:42] MED LIST changes: +PARO20TA3 PO; +TRAZ-257 PO
[2020-05-04 19:56] VITALS: BP 129/66
[2020-05-04] MEDS ORDERED: DULO1CAP6 PO (19:59)
[2020-05-04] MEDS ORDERED: MIRT1TAB15 PO (19:59)
[2020-05-04 20:18] LABS: HEMATOCRIT 39.3 % (36.0-47.0); HEMOGLOBIN 12.6 g/dl (12.0-15.5); MEAN CORPUSCULAR HEMOGLOBIN 30.1 pg (27.0-33.0); MEAN CORPUSCULAR HGB CONC 32.1 g/dl (32.0-36.5); PLATELET COUNT, AUTOMATED 282 10^3/uL (150-450); RED BLOOD COUNT 4.18 10^6/uL (4.00-5.40); WHITE BLOOD COUNT 7.4 10^3/uL (4.0-10.0)
[2020-05-04 20:34] LABS: AMPHETAMINES LEVEL URINE NEGATIVE (NEGATIVE); BARBITURATES URINE NEGATIVE (NEGATIVE); BENZODIAZEPINES URINE NEGATIVE (NEGATIVE); CANNABINOIDS URINE NEGATIVE (NEGATIVE); COCAINE METABOLITE URINE NEGATIVE (NEGATIVE); METHADONE URINE NEGATIVE (NEGATIVE); OPIATES URINE NEGATIVE (NEGATIVE); PHENCYCLIDINE URINE NEGATIVE (NEGATIVE)
[2020-05-04 21:08] LABS: ACETAMINOPHEN LEVEL < 2.0 UG/ML (10.0-30.0); ALBUMIN 4.2 GM/DL (3.2-5.2); ALT/SGPT 14 U/L (12-78); BILIRUBIN,DIRECT 0.1 MG/DL (0.0-0.2); BILIRUBIN,TOTAL 0.3 MG/DL (0.2-1.0); BLOOD UREA NITROGEN 13 MG/DL (7-18); CALCIUM LEVEL 8.8 MG/DL (8.5-10.1); CARBON DIOXIDE LEVEL 26 MEQ/L (21-32); CHLORIDE LEVEL 107 MEQ/L (98-107); CREATININE FOR GFR 0.72 MG/DL (0.55-1.30); ETHYL ALCOHOL (ETHANOL) < 0.003 % (0.000-0.010); GLOMERULAR FILTRATION RATE > 60.0 (>60); GLUCOSE, FASTING 106 MG/DL (70-100); POTASSIUM SERUM 3.9 MEQ/L (3.5-5.1); SALICYLATE LEVEL < 1.7 MG/DL (5.0-30.0); SODIUM LEVEL 139 MEQ/L (136-145); TOTAL PROTEIN 7.7 GM/DL (6.4-8.2)
[2020-05-05] MEDS ORDERED: HYDR-4570 PO (15:12)
[2020-05-05] MEDS ORDERED: REME15TA PO (15:12)
== END 2020-05-04 20:52 | disposition home or self-care (01) ==
LOC: M ED 19:42
DX: F60.9 Personality disorder, unspecified (principal); F43.0 Acute stress reaction; S60.811A Abrasion of right wrist, initial encounter; S60.812A Abrasion of left wrist, initial encounter; X78.8XXA Intentional self-harm by other sharp object, initial encounter; F99 Mental disorder, not otherwise specified; F17.200 Nicotine dependence, unspecified, uncomplicated; Z79.899 Other long term (current) drug therapy
CPT/HCPCS: 36415; 80048; 80076; 80307; 84443; 85027; 99284; G0480

== ENCOUNTER 2020-05-05 12:12 | Inpatient (IN) | payer OTHER ==
[~2020-05-05 12:12] MED LIST changes: +DULO1CAP6 PO; +MIRT1TAB15 PO
[2020-05-05 13:23] LABS: HEMOGLOBIN 12.6 g/dl (12.0-15.5); MEAN CORPUSCULAR HEMOGLOBIN 29.7 pg (27.0-33.0); MEAN CORPUSCULAR HGB CONC 32.3 g/dl (32.0-36.5); PLATELET COUNT, AUTOMATED 235 10^3/uL (150-450); RED BLOOD COUNT 4.24 10^6/uL (4.00-5.40)
[2020-05-05 13:43] LABS: AMPHETAMINES LEVEL URINE NEGATIVE (NEGATIVE); BARBITURATES URINE NEGATIVE (NEGATIVE); BENZODIAZEPINES URINE NEGATIVE (NEGATIVE); CANNABINOIDS URINE NEGATIVE (NEGATIVE); COCAINE METABOLITE URINE NEGATIVE (NEGATIVE); METHADONE URINE NEGATIVE (NEGATIVE); OPIATES URINE NEGATIVE (NEGATIVE); PHENCYCLIDINE URINE NEGATIVE (NEGATIVE)
[2020-05-05 14:14] LABS: ALBUMIN 3.9 GM/DL (3.2-5.2); ALT/SGPT 13 U/L (12-78); BILIRUBIN,DIRECT 0.1 MG/DL (0.0-0.2); BILIRUBIN,TOTAL 0.6 MG/DL (0.2-1.0); BLOOD UREA NITROGEN 10 MG/DL (7-18); CALCIUM LEVEL 8.7 MG/DL (8.5-10.1); CARBON DIOXIDE LEVEL 24 MEQ/L (21-32); CHLORIDE LEVEL 109 MEQ/L (98-107); ETHYL ALCOHOL (ETHANOL) < 0.003 % (0.000-0.010); GLOMERULAR FILTRATION RATE > 60.0 (>60); GLUCOSE, FASTING 81 MG/DL (70-100); POTASSIUM SERUM 4.1 MEQ/L (3.5-5.1); SALICYLATE LEVEL < 1.7 MG/DL (5.0-30.0); SODIUM LEVEL 139 MEQ/L (136-145); THYROID STIMULATING HORMONE 0.849 uIU/ML (0.358-3.740); TOTAL PROTEIN 7.1 GM/DL (6.4-8.2)
[2020-05-05] MEDS ORDERED: HYDR-4570 PO (15:12)
[2020-05-05] MEDS ORDERED: REME15TA PO (15:12)
[2020-05-05 18:32] LABS: HCG, SERUM QUALITATIVE NEGATIVE (NEGATIVE)
[2020-05-05] MEDS ORDERED: MOM 30ML SUSPENSION UDC PO PRN (19:45)
[2020-05-05] MEDS ORDERED: traZODone 50 MG TAB PO PRN (19:45)
[2020-05-05] MEDS ORDERED: MAALOX 30 ML SUSP *UDC PO PRN (19:45)
[2020-05-05 21:31] VITALS: BP 117/58
[2020-05-05] MEDS: MIRTAZAPINE 15 MG TAB PO SCH (22:24)
[2020-05-06 06:24] VITALS: BP 103/55
[2020-05-06] MEDS ORDERED: INFLUENZA QUADRIVALENT PF VACCINE 0.5ML SYRINGE IM ONE (09:00)
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
--- NOTE | 2020-05-06 11:29 | HPEPDOC ---
General Date of Admission May 05, 2020 at 19:36 Date of Service: May 06, 2020 Attending Physician: HUNG STEINER MD Chief Complaint The patient is a 25-year-old female admitted with a reason for visit of [facility]. Source: Patient Exam Limitations: No limitations Timing/Duration: 24 hours Severity: Moderate Associated Symptoms: Other (Depressed and suicidal) History of Present Illness 25 yo woman with a history of chart mention of borderline personality disorder and depression how was brought into the ED after self harming with hitting her head on the wall in the setting of an argument with her over erratic spending behavior online after buying a stuffed animal etc. She became very depressed, was hurting herself and reporting that she felt suicidal without an actual plan. She denied HI or AH. Work up in the ED revealed a normal CBC, BMP and tox screen and she was admitted to the [facility] for evaluation and treatment, and at this time, medicine is being consulted for official medical evaluation. She report a low grade headache that she often has at baseline with a history of TBI migraines with otherwise no vision changes, chest pain, palpitations, abdominal pain, recent fever, chills, travel or illicit drug use. ROS was positive for the mild headache, chronic episodic low grade back pain and resolving self mutilation cuts for which she requested bacitracin. Home Medications Scheduled Duloxetine Hcl (Duloxetine HCl) 60 Mg Capsule.dr, 60 MG PO QHS, (Reported) Mirtazapine (Remeron) 15 Mg Tablet, 15 MG PO QHS, (Reported) Scheduled PRN Hydroxyzine HCl (Hydroxyzine HCl) 25 Mg Tablet, 25 MG PO TID PRN for ANXIETY, (Reported) Allergies Coded Allergies: No Known Allergies (Unverified , 03/18/18) Past Medical History Medical History Depression Anxiety Chart mention of borderline personality disorder Family History Significant Family History: No pertinent family hx Social History * Smoker: current smoker Alcohol: Denies Drugs: denies Recent Travel/Sick Contacts: Denies: Recent travel, Recent sick contacts Psychosocial History: Anxiety, Decreased mood, Suicidal thoughts Lives at home with her and 2y old son. A-FIB/CHADSVASC A-FIB History Current/History of A-Fib/PAF?: No Current PO Anticoag Therapy: No Age/Risk Factor Scoring CHADSVASC: CHADSVASC Response (Comments) Value Age Risk Factor Age < 65 years old 0 Gender Risk Factor Female 1 Hx of CHF No 0 Hx of HTN No 0 Hx of Stroke/TIA/or VTE No 0 Hx of Diabetes No 0 Hx of Vascular Disease No 0 Total 1 Treatment Treatment ordered: NONE Reason Anticoagulant not given: Not indicated/[id number] Review of Systems Constitutional: Denies: Chills, Fever, Night Sweats Eyes: Denies: Pain, Vision change ENT: Denies: Head Aches, Ear Pain, Dysphagia Skin: Reports: Lesions (resolving self cutting scabbing over lesions) Pulmonary: Denies: Dyspnea, Cough Cardiovascular: Denies: Chest Pain, Palpitations, Orthopnea, Paroxysmal Noc. Dyspnea, Lt Headedness Gastrointestinal: Denies: Nausea, Vomiting, Abdominal Pain, Diarrhea Genitourinary: Denies: Dysuria, Frequency, Incontinence, Retention Hematologic: Denies: Bruising, Bleeding Excessively Endocrine: Denies: Polydipsia, Polyphagia, Polyuria, Heat Intolerance, Cold Intolerance, Other Endocrine Sx Musculoskeletal: Reports: Back Pain (chronic) Neurological: Denies: Weakness, Numbness, Change in speech, Confusion Psych: Reports: Depression, Thoughts of Self Harm Physical Examination General Exam: Positive: Alert, No Acute Distress Eye Exam: Positive: PERRLA, Conjunctiva & lids normal, EOMI; Negative: Sclera icteric ENT Exam: Positive: Atraumatic, Mucous membr. moist/pink, Pharynx Normal Neck Exam: Positive: Supple; Negative: JVD, thyromegaly Chest Exam: Positive: Clear to auscultation, Normal air movement Heart Exam: Positive: Rate Normal, Regular Rhythm, Normal S1, Normal S2; Negative: Murmurs, Rubs Abdomen Exam: Positive: Normal bowel sounds, Soft; Negative: Tenderness, Hepatospenomegaly Extremity Exam: Positive: Normal pulses; Negative: Clubbing, Cyanosis, Edema Skin Exam: Positive: Nl turgor and temperature, Lesion (has multiple bilateral anterior arm and RLE resolving self cutting linear lesions that have scabbed over without drainage.); Negative: Breakdown Neuro Exam: Positive: Normal Gait, Normal Speech, Cranial Nerves 3-12 NL, Reflexes 2+ Psych Exam: Positive: Oriented x 3; Negative: Mood NL (depressed mood) Vital Signs Vital Signs Date Time Temp Pulse Resp B/P (MAP) Pulse Ox O2 Delivery O2 Flow Rate FiO2 05/06/20 06:24 99.4 70 15 103/55 (71) 100 Room Air Laboratory Data Labs 24H Laboratory Tests 2 05/05/20 13:11: Nucleated Red Blood Cells % (auto) 0.0, Anion Gap 6L, Glomerular Filtration Rate > 60.0, Calcium Level 8.7, Total Bilirubin 0.6#, Direct Bilirubin 0.1, Aspartate Amino Transf (AST/SGOT) 10, Alanine Aminotransferase (ALT/SGPT) 13, Alkaline Phosphatase 85, Total Protein 7.1, Albumin 3.9, Albumin/Globulin Ratio 1.2, Thyroid Stimulating Hormone (TSH) 0.849, Human Chorionic Gonadotropin, Qual NEGATIVE, Salicylates Level < 1.7L, Urine Opiates Screen NEGATIVE, Urine Methadone Screen NEGATIVE, Acetaminophen Level 5.0L, Urine Barbiturates Screen NEGATIVE, Urine Phencyclidine Screen NEGATIVE, Urine Amphetamines Screen NEGATIVE, Urine Benzodiazepines Screen NEGATIVE, [place] Level , Urine Cocaine Metabolite Screen NEGATIVE, Urine Cannabinoids Screen NEGATIVE, Ethyl Alcohol Level < 0.003 CBC/BMP Laboratory Tests 05/05/20 13:11 Assessment/Plan Mrs. Lamas is a 24-year-old female who is admitted to the [facility] for suicidal thoughts and worsening depression. Patient reported that this has been going on for at least 2 days now. She has been experiencing worsening depression and thoughts of harming herself; she denied a plan. Patient reported that she had been scratching herself at home, with a goal of harming herself. She currently denies a plan and states that the thought of her and friend being upset is what stops her from actually harming herself. Patient denied any medical issu es. Patient has a past medical history which includes: Depression, suicidal ideation. #1. Depression with suicide ideation. Management per psychiatry. #2 Mild headach PRN tylenol #3 Resolving paper clip cuts on arms and RLE -will order topical bactracin DVT ppx: ambulatory, at low risk. Medicine will sign off at this time. Please feel free to reconsult as needed. Plan / VTE VTE Prophylaxis Ordered?: No VTE Exclusion Mechanical Proph: Low Risk for VTE VTE Exclusion Pharmacological: At Low Risk for VTE HUNG STEINER MD May 06, 2020 10:47
[2020-05-06] MEDS: BACITRACIN OINTMENT 30GM TUBE TOP SCH (13:00)
[2020-05-06] MEDS: NICOTINE 7 MG/24 HR TRANSDERMAL TD SCH (13:10)
[2020-05-06] MEDS: hydrOXYzine 50 MG TAB PO PRN ×2 (13:10→20:26)
[2020-05-06 17:38] VITALS: BP 129/71
[2020-05-06] MEDS: ACETAMINOPHEN TAB 650MG DOSE (2X325MG) PO PRN (20:26)
[2020-05-06] MEDS: MIRTAZAPINE 15 MG TAB PO SCH (20:26)
[2020-05-06] MEDS: DULoxetine 30 MG CAP (CYMBALTA) PO SCH (22:24)
[2020-05-07 06:07] VITALS: BP 97/52
[2020-05-07] MEDS: ACETAMINOPHEN TAB 650MG DOSE (2X325MG) PO PRN (08:03)
[2020-05-07] MEDS: NICOTINE 7 MG/24 HR TRANSDERMAL TD SCH (08:04)
[2020-05-07] MEDS: BACITRACIN OINTMENT 30GM TUBE TOP SCH (08:04)
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
[2020-05-07] MEDS: hydrOXYzine 50 MG TAB PO PRN (15:12)
[2020-05-07 17:59] VITALS: BP 116/65
[2020-05-07] MEDS: OLANZapine ORAL DISINTEGRATING TAB 5MG PO PRN (18:16)
[2020-05-07] MEDS: MIRTAZAPINE 15 MG TAB PO SCH (20:44)
[2020-05-07] MEDS: DULoxetine 30 MG CAP (CYMBALTA) PO SCH (20:44)
[2020-05-07] MEDS: ARIPiprazole 2 MG TAB PO SCH (20:45)
[2020-05-08 06:48] VITALS: BP 107/52
[2020-05-08] MEDS: hydrOXYzine 50 MG TAB PO PRN ×2 (08:31→20:33)
[2020-05-08] MEDS: NICOTINE 7 MG/24 HR TRANSDERMAL TD SCH (08:32)
[2020-05-08] MEDS: BACITRACIN OINTMENT 30GM TUBE TOP SCH (08:32)
[2020-05-08] MEDS ORDERED: ABIL1TAB13 PO (12:38)
[2020-05-08] MEDS ORDERED: DULO1CAP6 PO (12:38)
[2020-05-08] MEDS ORDERED: REME15TA PO (12:38)
[2020-05-08] MEDS ORDERED: HYDR50TA70 PO (12:38)
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
[2020-05-08 17:21] VITALS: BP 98/55
[2020-05-08] MEDS: OLANZapine ORAL DISINTEGRATING TAB 5MG PO PRN (20:32)
[2020-05-08] MEDS: ARIPiprazole 2 MG TAB PO SCH (20:32)
[2020-05-08] MEDS: MIRTAZAPINE 15 MG TAB PO SCH (20:32)
[2020-05-08] MEDS: DULoxetine 30 MG CAP (CYMBALTA) PO SCH (20:33)
[2020-05-09 06:29] VITALS: BP 119/57
[2020-05-09] MEDS: hydrOXYzine 50 MG TAB PO PRN (08:54)
[2020-05-09] MEDS: BACITRACIN OINTMENT 30GM TUBE TOP SCH (08:55)
[2020-05-09] MEDS: NICOTINE 7 MG/24 HR TRANSDERMAL TD SCH (08:55)
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
== END 2020-05-09 10:06 | disposition home or self-care (01) | DRG 885 ==
LOC: M ED 12:12 → M PSY 19:36
PROVIDERS: ADMIT Psychiatry & Neurology Addiction Medicine; ATTEND Psychiatry & Neurology Psychiatry
DX: F33.1 Major depressive disorder, recurrent, moderate (principal); F43.10 Post-traumatic stress disorder, unspecified; F60.3 Borderline personality disorder; Z62.810 Personal history of physical and sexual abuse in childhood; F17.210 Nicotine dependence, cigarettes, uncomplicated; Z79.899 Other long term (current) drug therapy

== ENCOUNTER 2020-11-26 14:38 | Inpatient (IN) | payer OTHER ==
[~2020-11-26] VITALS: Ht 172.7 cm; Wt 64.3 kg
[~2020-11-26 14:38] MED LIST changes: +ABIL1TAB13 PO; +HYDR50TA70 PO; +METH-1164 PO; -METH1TAB40 PO; +MIRT-62 PO
[2020-11-26] MEDS ORDERED: HYDR50TA70 PO (14:46)
[2020-11-26] MEDS ORDERED: ABIL1TAB11 PO (14:46)
[2020-11-26] MEDS ORDERED: ZOLO50TA PO (14:46)
[2020-11-26 16:26] LABS: HEMATOCRIT 36.8 % (36.0-47.0); HEMOGLOBIN 12.1 g/dl (12.0-15.5); MEAN CORPUSCULAR HGB CONC 32.9 g/dl (32.0-36.5); MEAN CORPUSCULAR VOLUME 91.1 fl (80.0-96.0); PLATELET COUNT, AUTOMATED 237 10^3/uL (150-450); RED BLOOD COUNT 4.04 10^6/uL (4.00-5.40); WHITE BLOOD COUNT 6.4 10^3/uL (4.0-10.0)
[2020-11-26 16:41] LABS: HCG, SERUM QUALITATIVE NEGATIVE (NEGATIVE)
[2020-11-26 16:43] LABS: AMPHETAMINES LEVEL URINE NEGATIVE (NEGATIVE); BARBITURATES URINE NEGATIVE (NEGATIVE); BENZODIAZEPINES URINE NEGATIVE (NEGATIVE); CANNABINOIDS URINE NEGATIVE (NEGATIVE); COCAINE METABOLITE URINE NEGATIVE (NEGATIVE); METHADONE URINE NEGATIVE (NEGATIVE); OPIATES URINE NEGATIVE (NEGATIVE); PHENCYCLIDINE URINE NEGATIVE (NEGATIVE)
[2020-11-26 17:13] LABS: ACETAMINOPHEN LEVEL < 2.0 UG/ML (10.0-30.0); ALBUMIN 3.8 GM/DL (3.2-5.2); ALT/SGPT 10 U/L (12-78); BILIRUBIN,DIRECT < 0.1 MG/DL (0.0-0.2); BILIRUBIN,TOTAL 0.3 MG/DL (0.2-1.0); BLOOD UREA NITROGEN 8 MG/DL (7-18); CALCIUM LEVEL 8.4 MG/DL (8.5-10.1); CARBON DIOXIDE LEVEL 26 MEQ/L (21-32); CHLORIDE LEVEL 109 MEQ/L (98-107); CREATININE FOR GFR 0.66 MG/DL (0.55-1.30); ETHYL ALCOHOL (ETHANOL) < 0.003 % (0.000-0.010); GLOMERULAR FILTRATION RATE > 60.0 (>60); GLUCOSE, FASTING 89 MG/DL (70-100); POTASSIUM SERUM 4.5 MEQ/L (3.5-5.1); SALICYLATE LEVEL < 1.7 MG/DL (5.0-30.0); SODIUM LEVEL 140 MEQ/L (136-145); TOTAL PROTEIN 6.8 GM/DL (6.4-8.2)
[2020-11-26] MEDS ORDERED: MOM 30ML SUSPENSION UDC PO PRN (18:05)
[2020-11-26] MEDS ORDERED: traZODone 50 MG TAB PO PRN (18:05)
[2020-11-26] MEDS ORDERED: MAALOX 30 ML SUSP *UDC PO PRN (18:05)
[2020-11-26] MEDS ORDERED: MIRT-62 PO (18:33)
[2020-11-26] MEDS ORDERED: HYDR50CA2 PO (18:33)
[2020-11-26 19:02] LABS: RSV AMPLIFICATION NEGATIVE (NEGATIVE)
[2020-11-26 22:07] VITALS: BP 106/62
[2020-11-26] MEDS: ACETAMINOPHEN TAB 650MG DOSE (2X325MG) PO PRN (22:22)
[2020-11-27 06:17] VITALS: BP 96/51
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
[2020-11-27 16:11] VITALS: BP 114/60
--- NOTE | 2020-11-27 18:22 | HPEPDOC ---
General Date of Admission Nov 26, 2020 at 18:04 Date of Service: Nov 27, 2020 Chief Complaint The patient is a 25-year-old female admitted with a reason for visit of Unspecified Depressive Do. Source: Patient History of Present Illness Patient is 25 years old female with past history of scoliosis, PTSD, anxiety and depression presented to the hospital with suicidal ideation. She states that for about 2 to 3 weeks she has had constant intrusive self harm thoughts. She thinks of cutting and scratching her wrists. The thoughts have become worse over the last three months. She told her that the thoughts were uncontroll able and had him bring her to the ED. During my interview patient denied fever, chills, nausea, diarrhea or dysuria Home Medications Scheduled Aripiprazole (Abilify) 5 Mg Tablet, 5 MG PO DAILY, (Reported) Hydroxyzine Pamoate (Hydroxyzine Pamoate) 50 Mg Capsule, 50 MG PO BID, (Reported) Mirtazapine (Remeron) 15 Mg Tablet, 15 MG PO QHS, (Reported) Sertraline Hcl (Zoloft) 50 Mg Tablet, 50 MG PO DAILY, (Reported) Allergies Coded Allergies: No Known Allergies (Unverified , 03/18/18) Past Medical History Medical History Anxiety, PTSD, scoliosis, depression Family History Mother has bipolar disorder Social History * Smoker: current smoker Alcohol: Denies Drugs: denies A-FIB/CHADSVASC A-FIB History Current/History of A-Fib/PAF?: No Current PO Anticoag Therapy: No Review of Systems Constitutional: Denies: Chills Eyes: Denies: Pain ENT: Denies: Head Aches Skin: Denies: Rash Pulmonary: Denies: Dyspnea Cardiovascular: Denies: Chest Pain Gastrointestinal: Denies: Nausea Genitourinary: Denies: Dysuria Hematologic: Denies: Bruising Endocrine: Denies: Polydipsia Musculoskeletal: Denies: Neck Pain Neurological: Denies: Weakness Psych: Reports: Anxiety, Depression Physical Examination General Exam: Positive: Alert, Cooperative Eye Exam: Positive: PERRLA ENT Exam: Positive: Atraumatic Neck Exam: Positive: Supple; Negative: JVD Chest Exam: Positive: Clear to auscultation Heart Exam: Positive: Rate Normal Telemetry: Positive: No significant arrhythmia Abdomen Exam: Positive: Normal bowel sounds Extremity Exam: Negative: Clubbing, Cyanosis Skin Exam: Positive: Nl turgor and temperature Neuro Exam: Positive: Normal Gait Psych Exam: Positive: Oriented x 3 Vital Signs Vital Signs Date Time Temp Pulse Resp B/P (MAP) Pulse Ox O2 Delivery O2 Flow Rate FiO2 11/27/20 16:11 98.3 88 16 114/60 (78) 98 Room Air Assessment/Plan Patient is 25 years old female with past history of scoliosis, PTSD, anxiety and depression presented to the hospital with suicidal ideation. She states that for about 2 to 3 weeks she has had constant intrusive self harm thoughts. She thinks of cutting and scratching her wrists. The thoughts have become worse over the last three months. She told her that the thoughts were uncontrollable and had him bring her to the ED. During my interview patient denied fever, chills, nausea, diarrhea or dysuria Problems (1) Suicidal ideation Status: Acute Problem Text: Deferred treatment to psych team Plan / VTE VTE Prophylaxis Ordered?: No VTE Exclusion Mechanical Proph: Low Risk for VTE ISA CELESTIN DO Nov 27, 2020 18:22
[2020-11-27] MEDS: hydrOXYzine 50 MG TAB PO PRN (19:02)
[2020-11-27] MEDS: SERTRALINE HCL 50 MG TAB PO SCH (19:02)
[2020-11-27] MEDS: MIRTAZAPINE 15 MG TAB PO SCH (20:37)
[2020-11-28 06:46] VITALS: BP 107/64
[2020-11-28] MEDS: SERTRALINE HCL 50 MG TAB PO SCH (08:58)
[2020-11-28] MEDS: NALTREXONE 50 MG TAB PO SCH (11:38)
--- NOTE | 2020-11-28 11:43 | MHIPNPDOC ---
[facility] Progress Note Progress Note DATE OF SERVICE: 11/28/20 HISTORY: Patient is a 25 -year-old , [employer] [place], Domiciled, female, who has been having self harm thoughts. She states that for about 2 to 3 weeks she has had constant intrusive self harm thoughts. She thinks of cutting and scratching her wrists. The thoughts have become worse over the last three months. She told her that the thoughts were uncontrollable and had him bring her to the ED. She has history depression, anxiety PTSD, adjustment disorder, borderline personality disorder. She was last admitted to this facility on 05/05/2020. She follows up with Gabriel correia. She was prescribed Naltrexone recently to help curb the intrusive thoughts but she never got to fill the prescription. PER ED REPORT; Pt had her bring her in due to "wanting to cut and scratch. I was wanting to hurt myself." Pt states that she does not know why she has been having these "thoughts" for 2 weeks and she is disappointed that she "ended up back here" When asked to elaborate on thoughts, she describes urges to "cut or scratch" She does have a little redness on her left wrist from "scratching with her fingernail" When asked about SI, Pt states "I've had thoughts, but no intention" When asked what stops her from having plans or attentions, she repo rts her son being her source of strength. She also describes her as a good support for when she is feeling these urges of self-harm. Pt does not feel like she is able to contract for safety at this time because the "urge to cut is just too strong" She reports "I just do not trust myself" Pt describes increased feelings of hopeless/helpless. When asked about AH/VH, she describe "what my calls a delusion" She reports that "I feel like my life is an experiment and everyone has been strategically placed" Pt completed the [facility] for PTSD this past year. Pt seeks outpatient services at [facility] with therapy and medication. VITAL SIGNS: See below. CURRENT MEDICATIONS: See below. 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 She states that for about 2 to 3 weeks she has had constant intrusive self harm thoughts. Speech: Is fluid, conversant, normal rate, tone and volume Language skills are intact Thought processes including: linear and goal oriented Thought content: denies depression and anxiety. Denies suicidal/homicidal ideation, planning or intent. Abstract reasoning, and computation: fair Description of associations: denies, none observed Description of abnormal or psychotic thoughts: denies, none observed. Judgment: fair Insight: fair Orientation: alert and oriented to person, place, time and situation Recent and remote memory: intact Attention span and concentration: good Language: expansive Fund of knowledge: average Mood: Euthymic Mood Affect: reactive DIAGNOSES: Major Depressive Disorder, with psychotic features PTSD Borderline Personality Disorder Generalized Anxiety Disorder ASSESSMENT: Patient reports "not feeling great, feels numb, doesn't care one way or the other, reports feeling more anxious than depressed." When asked what causes her anxiety, reports that her job causes anxiety because she feels usel ess, she doesn't do much at work and feels worthless. "I hate my work." Feels that other people are judging her, other people are talking about her. 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 ad constantly talking about her, reported several incidents where she was talked about." She has a couple of friends that she can vent to, as well as, her . Her relationship with her has improved since her last admission. they are about to close on a house in a month. She has been communicating with him over the phone, he is supportive but he is caregiver to their 2 year old in addition to his job. She follows up with Gabriel Jade and has been diagnosed PTSD, Anxiety, Adjustment Disorder, Borderline Personality Disorder. She continues to have intrusive thoughts of self-harm. She had reported yesterday that people are strategically placed in her life to play a role in her life -believes that some days she believes it but other days she believes that it is very real. She was bouncing her knees throughout the interview and was encouraged to ask for her Hydroxyzine. She does not like group therapies but prefers one to one interviews. 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 This is being initiated today. MANAGEMENT PLAN: Continued all medications. Ordered Naltrexone 25 mg po x 4 days and increased to 50 mg on 12/03/20 for cutting urges. TIME SPENT: 25 minutes. Vital Signs Vital Signs Date Time Temp Pulse Resp B/P (MAP) Pulse Ox O2 Delivery O2 Flow Rate FiO2 11/28/20 06:46 98.0 95 20 107/64 (78) 97 Room Air Current Medications Current Medications Medications (Trade) Dose Ordered Sig/Paula Route PRN Reason Start Time Stop Time Status Last Admin Dose Admin Acetaminophen (Tylenol Tab) 650 mg Q6HP PRN PO HEADACHE or DISCOMFORT 11/26/20 18:05 11/26/20 22:22 Al Hydrox/Mg Hydrox/Simethicone (Mylanta) 30 ml Q4HP PRN PO HEARTBURN/INDIGESTION 11/26/20 18:05 Aripiprazole (AbiLIFY) 5 mg DAILY PO 11/27/20 09:00 11/28/20 08:58 Home Med (Med Rec Complete!) ASDIRECTED XX 11/26/20 18:35 11/26/20 18:35 DC Hydroxyzine HCl (Atarax) 50 mg Q6HP PRN PO anxiety/agitation 11/27/20 18:10 11/27/20 19:02 Magnesium Hydroxide (Milk Of Magnesia) 30 ml DAILYPRN PRN PO CONSTIPATION 11/26/20 18:05 Mirtazapine (Remeron) 15 mg QPM PO 11/27/20 21:00 11/27/20 20:37 Sertraline HCl (Zoloft) 50 mg DAILY PO 11/27/20 09:00 11/28/20 08:58 Trazodone HCl (Desyrel) 50 mg QHSP PRN PO INSOMNIA 11/26/20 18:05 11/26/20 22:21 Allergies Coded Allergies: No Known Allergies (Unverified , 03/18/18) MARYANNE VIVEROS MIRROR SILVERER Nov 28, 2020 11:35
[2020-11-28 16:51] VITALS: BP 104/55
[2020-11-28] MEDS: hydrOXYzine 50 MG TAB PO PRN (20:12)
[2020-11-28] MEDS: MIRTAZAPINE 15 MG TAB PO SCH (20:12)
[2020-11-29] MEDS: hydrOXYzine 50 MG TAB PO PRN ×2 (08:15→20:12)
[2020-11-29] MEDS: NALTREXONE 50 MG TAB PO SCH (08:17)
[2020-11-29] MEDS ORDERED: SERTRALINE HCL 25 MG TABLET PO SCH (09:00)
--- NOTE | 2020-11-29 10:53 | MHIPNPDOC ---
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 She states that for about 2 to 3 weeks she has had constant intrusive self harm thoughts. She thinks of cutting and scratching her wrists. The thoughts have become worse over the last three months. She told her that the thoughts were uncontrollable and had him bring her to the ED. She has history depression, anxiety PTSD, adjustment disorder, borderline personality disorder. She was last admitted to this facility on 05/05/2020. She follows up with Gabriel correia. She was prescribed Naltrexone recently to help curb the intrusive thoughts but she never got to fill the prescription. PER ED REPORT; Pt had her bring her in due to "wanting to cut and scratch. I was wanting to hurt myself." Pt states that she does not know why she has been having these "thoughts" for 2 weeks and she is disappointed that she "ended up back here" When asked to elaborate on thoughts, she describes urges to "cut or scratch" She does have a little redness on her left wrist from "scratching with her fingernail" When asked about SI, Pt states "I've had thoughts, but no intention" When asked what stops her from having plans or attentions, she repo rts her son being her source of strength. She also describes her as a good support for when she is feeling these urges of self-harm. Pt does not feel like she is able to contract for safety at this time because the "urge to cut is just too strong" She reports "I just do not trust myself" Pt describes increased feelings of hopeless/helpless. When asked about AH/VH, she describe "what my calls a delusion" She reports that "I feel like my life is an experiment and everyone has been strategically placed" Pt completed the [facility] for PTSD this past year. Pt seeks outpatient services at [facility] with therapy and medication. VITAL SIGNS: See below. CURRENT MEDICATIONS: See below. 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 She states that for about 2 to 3 weeks she has had constant intrusive self harm thoughts. Speech: Is slow rate, low tone and volume Language skills are intact Thought processes including: linear and goal oriented Thought content: denies depression and anxiety. Denies suicidal/homicidal ideation, planning or intent. "I feel like I am not here, I am not real, like I am in a dream, not in my body, I feel like a zombie going through the motions" Abstract reasoning, and computation: fair Description of associations: denies, none observed Description of abnormal or psychotic thoughts: denies, none observed. Judgment: fair Insight: fair Orientation: alert and oriented to person, place, time and situation Recent and remote memory: intact Attention span and concentration: good Language: expansive Fund of knowledge: average Mood: "Tired" Has a depressed and flat affect Affect: reactive DIAGNOSES: Major Depressive Disorder, with psychotic features PTSD Borderline Personality Disorder Generalized Anxiety Disorder ASSESSMENT: Had urges to cut around yesterday at 1400, but did not scratch herself Has had two doses of Naltrexone. Reports feeling like she is not here. Feels like her body is not here, feels like she is experiencing dissociative and derealization "I feel like I am not here, I am not real, like I am in a dream, not in my body, I feel like a zombie going through the motions" Reports that she feels better here because she is numb but that is better than when she first came in. She reports that she was angry and felt better cutting herself because the intrusive thoughts were painful. Patient appears quite depressed and flat. She has been isolative and withdrawn today. Encouraged to be in the milieu and attend groups but patient has difficulty being in social settings. MANAGEMENT PLAN: Continued all medications. Increased Mirtazapine to 22.5 mg and Abilify to 10 mg. TIME SPENT: 25 minutes. Vital Signs Vital Signs Date Time Temp Pulse Resp B/P (MAP) Pulse Ox O2 Delivery O2 Flow Rate FiO2 11/28/20 16:51 97.2 74 14 104/55 (71) Room Air 11/28/20 06:46 97 Current Medications Current Medications Medications (Trade) Dose Ordered Sig/Paula Route PRN Reason Start Time Stop Time Status Last Admin Dose Admin Acetaminophen (Tylenol Tab) 650 mg Q6HP PRN PO HEADACHE or DISCOMFORT 11/26/20 18:05 11/26/20 22:22 Al Hydrox/Mg Hydrox/Simethicone (Mylanta) 30 ml Q4HP PRN PO HEARTBURN/INDIGESTION 11/26/20 18:05 Aripiprazole (AbiLIFY) 5 mg DAILY PO 11/27/20 09:00 11/29/20 08:15 Home Med (Med Rec Complete!) ASDIRECTED XX 11/26/20 18:35 11/26/20 18:35 DC Hydroxyzine HCl (Atarax) 50 mg Q6HP PRN PO anxiety/agitation 11/27/20 18:10 11/29/20 08:15 Magnesium Hydroxide (Milk Of Magnesia) 30 ml DAILYPRN PRN PO CONSTIPATION 11/26/20 18:05 Mirtazapine (Remeron) 15 mg QPM PO 11/27/20 21:00 11/28/20 20:12 Naltrexone HCl (Revia) 25 mg DAILY PO 11/28/20 12:00 12/02/20 12:00 11/29/20 08:17 Naltrexone HCl (Revia) 50 mg QAM PO 12/03/20 09:00 Sertraline HCl (Zoloft) 50 mg DAILY PO 11/27/20 09:00 11/28/20 11:21 DC 11/28/20 08:58 Sertraline HCl (Zoloft) 75 mg DAILY PO 11/29/20 09:00 11/29/20 08:15 Trazodone HCl (Desyrel) 50 mg QHSP PRN PO INSOMNIA 11/26/20 18:05 11/26/20 22:21 Allergies Coded Allergies: No Known Allergies (Unverified , 03/18/18) MARYANNE VIVEROS [facility] ADMINISTRATOR Nov 29, 2020 10:47
[2020-11-29 16:12] VITALS: BP 96/54
[2020-11-29] MEDS: MIRTAZAPINE 15 MG TAB PO SCH (20:11)
[2020-11-29] MEDS: MIRTAZAPINE 7.5MG PER 1/2 TABLET PO SCH (20:11)
[2020-11-30 06:23] VITALS: BP 102/51
[2020-11-30] MEDS: PILL CUTTER 1 EACH XX PRN (08:12)
[2020-11-30] MEDS: hydrOXYzine 50 MG TAB PO PRN ×2 (08:13→20:03)
[2020-11-30] MEDS: NALTREXONE 50 MG TAB PO SCH (08:13)
[2020-11-30] MEDS: ARIPiprazole 10 MG TAB NG SCH (08:13)
--- NOTE | 2020-11-30 12:56 | MHIPN ---
[facility] PROGRESS NOTE DATE: 11/30/2020 VITAL SIGNS: Blood pressure 102/51, pulse 74, temperature 99.3. CHIEF COMPLAINT: Says feels better. SUBJECTIVE: Seen for followup. This is by video. Says feels a bit better and that she is less anxious, less depressed. Says has had a better night. Has had no thoughts of hurting or scratching herself in the recent 24 hours or so. MENTAL STATUS EXAMINATION: Neat, cooperative, coherent. No agitation. No psychomotor retardation. Affect is restricted in range. Denies active suicidal thoughts or intents. No homicidal ideas or intents. No evidence of any psychosis. Cognition is grossly intact. Judgment and insight fair but compromised. ASSESSMENT: 1. Major depressive disorder. 2. Posttraumatic stress disorder by history. PLAN: Continue current care, observation. She is on Zoloft at 75 mg daily, Remeron 22.5 mg at night. She is also on naltrexone daily, aripiprazole 10 mg daily. I was informed later on that the sertraline had been discontinued at 75 mg daily, unclear why. In view of this, I would suggest that it is resumed and that further assessments are made in the next few days regarding its indications. She is to be encouraged to participate in activities as tolerated. We will continue with present precautions.
[2020-11-30] MEDS: SERTRALINE HCL 25 MG TABLET PO SCH (13:25)
[2020-11-30 16:04] VITALS: BP 100/54
[2020-11-30] MEDS: MIRTAZAPINE 15 MG TAB PO SCH (20:03)
[2020-11-30] MEDS: MIRTAZAPINE 7.5MG PER 1/2 TABLET PO SCH (20:03)
[2020-12-01 06:19] VITALS: BP 116/55
[2020-12-01] MEDS: NALTREXONE 50 MG TAB PO SCH (08:08)
[2020-12-01] MEDS: SERTRALINE HCL 25 MG TABLET PO SCH (08:08)
[2020-12-01] MEDS: ARIPiprazole 10 MG TAB NG SCH (08:08)
[2020-12-01] MEDS: PILL CUTTER 1 EACH XX PRN (08:08)
[2020-12-01 16:19] VITALS: BP 103/58
[2020-12-01] MEDS: MIRTAZAPINE 7.5MG PER 1/2 TABLET PO SCH (20:06)
[2020-12-01] MEDS: hydrOXYzine 50 MG TAB PO PRN (20:07)
[2020-12-01] MEDS: ACETAMINOPHEN TAB 650MG DOSE (2X325MG) PO PRN (20:07)
[2020-12-01] MEDS: MIRTAZAPINE 15 MG TAB PO SCH (20:07)
[2020-12-02 07:09] VITALS: BP 105/52
[2020-12-02] MEDS: PILL CUTTER 1 EACH XX PRN (08:06)
[2020-12-02] MEDS: SERTRALINE HCL 25 MG TABLET PO SCH (08:06)
[2020-12-02] MEDS: NALTREXONE 50 MG TAB PO SCH (08:07)
[2020-12-02] MEDS: ARIPiprazole 10 MG TAB NG SCH (08:07)
[2020-12-02] MEDS: hydrOXYzine 50 MG TAB PO PRN (08:08)
[2020-12-02] MEDS ORDERED: ARIP1TAB PO (12:02)
[2020-12-02] MEDS ORDERED: NALT50TA4 PO (12:02)
[2020-12-02] MEDS ORDERED: SERT25TA85 PO (12:02)
--- NOTE | 2020-12-02 16:35 | MHDSPDOC ---
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 She states that for about 2 to 3 weeks she has had constant intrusive self harm thoughts. She thinks of cutting and scratching her wrists. The thoughts have become worse over the last three months. She told her that the thoughts were uncontrollable and had him bring her to the ED. She has history depression, anxiety PTSD, adjustment disorder, borderline personality disorder. She was last admitted to this facility on 05/05/2020. She follows up with Gabriel correia. She was prescribed Naltrexone recently to help curb the intrusive thoughts but she never got to fill the prescription. PER ED REPORT; Pt had her bring her in due to "wanting to cut and scratch. I was wanting to hurt myself." Pt states that she does not know why she has been having these "thoughts" for 2 weeks and she is disappointed that she "ended up back here" When asked to elaborate on thoughts, she describes urges to "cut or scratch" She does have a little redness on her left wrist from "scratching with her fingernail" When asked about SI, Pt states "I've had thoughts, but no intention" When asked what stops her from having plans or attentions, she reports her son being her source of strength. She also describes her as a good support for when she is feeling these urges of self-harm. Pt does not feel like she is able to contract for safety at this time because the "urge to cut is just too strong" She reports "I just do not trust myself" Pt describes increased feelings of hopeless/helpless. When asked about AH/VH, she describe "what my calls a delusion" She reports that "I feel like my life is an experiment and everyone has been strategically placed" Pt completed the [facility] for PTSD this past year. Pt seeks outpatient services at [facility] with therapy and medication. CONSULTANTS INVOLVED: See Medical H + P by Hospitalist TREATMENT AND PROGRESS ON THE UNIT: Patient was admitted to the [facility] on a 9.39 legal status he was afforded the following treatment modalities: 1) Individual Therapy 2) Group Therapy 3) Medication Management 4) Milieu Therapy 5) Safe Environment HOSPITAL COURSE: Patient was admitted to [facility] on a 9.39 legal status. She was started on her home medications with titration of her Zoloft to 75 mg and Abilify to 10 mg. She was also started on Naltrexone 50 mg for her cutting urges. Patient reported that she was having good effects with medications. She was cooperative with treatment, adherent to medications, social with peers and staff. Patient reports her anxiety is 4 out of 10 when reviewed how her anxiety is at home. She states she is normally a 4 out of 10 at home. . He states she is at baseline today and is requesting to be discharged DISCHARGE ASSESSMENT: In today's interview, patient is alert and oriented, pts dress is appropriate. Hygiene and grooming is well-kempt. Smiles on approach and is pleasant and engaged in the interview. Denies depression and anxiety. Denies suicidal and homicidal ideation, planning or intent. Denies and is not observed with escobar, psychotic symptoms of delusions, bizarre thinking, obsessions, paranoia, ruminations illogical thoughts, flight of ideas or having poor insight and judgement. Patient has normal mentation, declines further hospitalization on a voluntary status and meets criteria for discharge today. Patient encouraged to return to hospital if symptoms worsen or change and encouraged to call unit if he/she/they needs to speak to provider for questions regarding medications or care. 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 She states that for about 2 to 3 weeks she has had constant intrusive self harm thoughts. Speech: Is fluid, conversant, normal rate, tone and volume Language skills are intact Thought processes including: linear and goal oriented Thought content: denies depression and anxiety. Denies suicidal/homicidal ideation, planning or intent. Abstract reasoning, and computation: fair Description of associations: denies, none observed Description of abnormal or psychotic thoughts: denies, none observed. Judgment: fair Insight: fair Orientation: alert and oriented to person, place, time and situation Recent and remote memory: intact Attention span and concentration: good Language: expansive Fund of knowledge: average Mood: Euthymic Mood Affect: reactive MEDICATIONS ON DISCHARGE: See Medication Reconciliation PLAN/FOLLOWUP ARRANGEMENTS: Patient is being discharged to home. She is follow ing up at [facility] The amount of time spent in the coordination of care for this patient was approximately 25 minutes. ETOH/Disorder Med Rx ETOH/DRUG DISORDER RX: Offrd @ d/c & pt refused Vital Signs/I&Os Vital Signs Date Time Temp Pulse Resp B/P (MAP) Pulse Ox O2 Delivery O2 Flow Rate FiO2 12/02/20 07:09 98.7 75 20 105/52 (69) 98 Room Air Medications Scheduled Aripiprazole (Aripiprazole) 10 Mg Tablet, 10 MG PO DAILY for Antipsychotic, #7 Hydroxyzine Pamoate (Hydroxyzine Pamoate) 50 Mg Capsule, 50 MG PO BID, (Reported) Mirtazapine (Remeron) 15 Mg Tablet, 15 MG PO QHS, (Reported) Naltrexone HCl (Naltrexone HCl) 50 Mg Tablet, 50 MG PO QAM for Intrusive Urges, #7 Sertraline Hcl (Sertraline HCl) 25 Mg Tablet, 75 MG PO DAILY for depression, #21 Allergies Coded Allergies: No Known Allergies (Unverified , 03/18/18) MARYANNE VIVEROS NP December 02, 2020 12:06
[2020-12-03] MEDS ORDERED: NALTREXONE 50 MG TAB PO SCH (09:00)
== END 2020-12-02 13:35 | disposition home or self-care (01) | DRG 885 ==
LOC: M ED 14:38 → M ED INP 18:04 → M PSY 21:07
PROVIDERS: ADMIT Psychiatry & Neurology Psychiatry; ATTEND Psychiatry & Neurology Psychiatry
DX: F32.3 Major depressive disorder, single episode, severe with psychotic features (principal); R45.851 Suicidal ideations; F60.3 Borderline personality disorder; F41.1 Generalized anxiety disorder; F43.10 Post-traumatic stress disorder, unspecified; F43.20 Adjustment disorder, unspecified; Z91.5 Personal history of self-harm; F17.210 Nicotine dependence, cigarettes, uncomplicated; F17.290 Nicotine dependence, other tobacco product, uncomplicated; Z62.810 Personal history of physical and sexual abuse in childhood; Z20.822 Contact with and (suspected) exposure to COVID-19; Z79.899 Other long term (current) drug therapy; M41.80 Other forms of scoliosis, site unspecified; Z56.6 Other physical and mental strain related to work; Z81.8 Family history of other mental and behavioral disorders

== ENCOUNTER 2021-06-17 09:49 | Emergency (ER) | payer OTHER ==
[~2021-06-17] VITALS: Ht 172.7 cm; Wt 57.0 kg
[~2021-06-17 09:49] MED LIST changes: +ABIL1TAB11 PO; +ARIP1TAB PO; +HYDR50CA2 PO; +NALT50TA4 PO; +SERT25TA85 PO; +ZOLO50TA PO
--- OUTSIDE RECORDS SUMMARY | 2021-06-17 09:57 | CCD ---
Author Author [facility] Organization [facility] Address Unknown Phone Unavailable Care Team Providers Care Funeral Home Manager Name Role Phone ARCELIAE, Charisse GRESHAM PA Unavailable Unavailable LETTIERE, A MARGA PA Unavailable Unavailable LETTIERE, A MARGA PA Unavailable Unavailable LETTIERE, A MARGA PA Unavailable Unavailable LETTIERE, A MARGA PA Unavailable Unavailable LETTIERE, A MARGA PA Unavailable Unavailable LETTIERE, A MARGA PA Unavailable Unavailable LETTIERE, A MARGA PA Unavailable Unavailable LETTIERE, A MARGA PA Unavailable Unavailable LETTIERE, A MARGA PA Unavailable Unavailable LETTIERE, A MARGA PA Unavailable Unavailable LETTIERE, A MARGA PA Unavailable Unavailable LETTIERE, A MARGA PA Unavailable Unavailable LETTIERE, A MARGA PA Unavailable Unavailable LETTIERE, A MARGA PA Unavailable Unavailable LETTIERE, A MARGA PA Unavailable Unavailable LETTIERE, A MARGA PA Unavailable Unavailable LETTIERE, A MARGA PA Unavailable Unavailable LETTIERE, A MARGA PA Unavailable Unavailable LETTIERE, A MARGA PA Unavailable Unavailable LETTIERE, A MARGA PA Unavailable Unavailable LETTIERE, A MARGA PA Unavailable Unavailable LETTIERE, A MARGA PA Unavailable Unavailable LETTIERE, A MARGA PA Unavailable Unavailable LETTIERE, A MARGA PA Unavailable Unavailable LETTIERE, A MARGA PA Unavailable Unavailable LETTIERE, A MARGA PA Unavailable Unavailable LETTIERE, A MARGA PA Unavailable Unavailable LETTIERE, A MARGA PA Unavailable Unavailable LETTIERE, A MARGA PA Unavailable Unavailable LETTIERE, A MARGA PA Unavailable Unavailable Pablo Bradshaw MD Unavailable Unavailable Pablo Bradshaw MD Unavailable Unavailable Pablo Bradshaw MD Unavailable Unavailable Pablo Bradshaw MD Unavailable Unavailable Pablo Bradshaw MD Unavailable Unavailable Pablo Bradshaw MD Unavailable Unavailable Abriss, Pablo Bagley MD Unavailable Unavailable Abriss, Pablo Bagley MD Unavailable Unavailable Abriss, Pablo Bagley MD Unavailable Unavailable Abriss, Pablo Bagley MD Unavailable Unavailable Abriss, Pablo Bagley MD Unavailable Unavailable Abriss, Pablo Bagley MD Unavailable Unavailable Abriss, Pablo Bagley MD Unavailable Unavailable Abriss, Pablo Bagley MD Unavailable Unavailable Abriss, Pablo Bagley MD Unavailable Unavailable Abriss, Pablo Bagley MD Unavailable Unavailable Abriss, Pablo Bagley MD Unavailable Unavailable Abriss, Pablo Bagley MD Unavailable Unavailable Abriss, Pablo Bagley MD Unavailable Unavailable LITTELL, M SINDHU DO Unavailable Unavailable LITTELL, M SINDHU DO Unavailable Unavailable LITTELL, M SINDHU DO Unavailable Unavailable LITTELL, M SINDHU DO Unavailable Unavailable LITTELL, M SINDHU DO Unavailable Unavailable LITTELL, M SINDHU DO Unavailable Unavailable LITTELL, M SINDHU DO Unavailable Unavailable LITTELL, M SINDHU DO Unavailable Unavailable LITTELL, M SINDHU DO Unavailable Unavailable LITTELL, M SINDHU DO Unavailable Unavailable LITTELL, M SINDHU DO Unavailable Unavailable LITTELL, M SINDHU DO Unavailable Unavailable LITTELL, M SINDHU DO Unavailable Unavailable LITTELL, M SINDHU DO Unavailable Unavailable LITTELL, M SINDHU DO Unavailable Unavailable LITTELL, M SINDHU DO Unavailable Unavailable LITTELL, M SINDHU DO Unavailable Unavailable LITTELL, M SINDHU DO Unavailable Unavailable LITTELL, M SINDHU DO Unavailable Unavailable LITTELL, M SINDHU DO Unavailable Unavailable LITTELL, M SINDHU DO Unavailable Unavailable LITTELL, M SINDHU DO Unavailable Unavailable LITTELL, M SINDHU DO Unavailable Unavailable LITTELL, M SINDHU DO Unavailable Unavailable LITTELL, M SINDHU DO Unavailable Unavailable LITTELL, M SINDHU DO Unavailable Unavailable LITTELL, M SINDHU DO Unavailable Unavailable LITTELL, M SINDHU DO Unavailable Unavailable LITTELL, M SINDHU DO Unavailable Unavailable LITTELL, M SINDHU DO Unavailable Unavailable LITTELL, M SINDHU DO Unavailable Unavailable LITTELL, M SINDHU DO Unavailable Unavailable LITTELL, M SINDHU DO Unavailable Unavailable GABYB, PACO CLAUDIO PA-C Unavailable Unavailable GABBY, PACO CLAUDIO PA-C Unavailable Unavailable GABBY, PACO CLAUDIO PA-C Unavailable Unavailable GABBY, PACO CLAUDIO PA-C Unavailable Unavailable GABBY, PACO CLAUDIO PA-C Unavailable Unavailable GABBY, PACO CLAUDIO PA-C Unavailable Unavailable GABBY, PACO CLAUDIO PA-C Unavailable Unavailable GABBY, PACO CLAUDIO PA-C Unavailable Unavailable GABBY, PACO CLAUDIO PA-C Unavailable Unavailable PACO PIERRE CLAUDIO MCNAMARAC Unavailable Unavailable Re-disclosure Warning The records that you are about to access may contain information from federally-assisted alcohol or drug abuse programs. If such information is present, then the following federally mandated warning applies: This information has been disclosed to you from records protected by federal confidentiality rules (42 CFR part 2). The federal rules prohibit you from making any further disclosure of this information unless further disclosure is expressly permitted by the written consent of the person to whom it pertains or as otherwise permitted by 42 CFR part 2. A general authorization for the release of medical or other information is NOT sufficient for this purpose. The Federal rules restrict any use of the information to criminally investigate or prosecute any alcohol or drug abuse patient.The records that you are about to access may contain highly sensitive health information, the redisclosure of which is protected by Article 27-F of the [facility] Public Health law. If you continue you may have access to information: Regarding HIV / AIDS; Provided by facilities licensed or operated by the [facility] Office of Mental Health; or Provided by the [facility] Office for People With Developmental Disabilities. If such information is present, then the following [facility] mandated warning applies: This information has been disclosed to you from confidential records which are protected by state law. State law prohibits you from making any further disclosure of this information without the specific written consent of the person to whom it pertains, or as otherwise permitted by law. Any unauthorized further disclosure in violation of state law may result in a fine or detention sentence or both. A general authorization for the release of medical or other information is NOT sufficient authorization for further disc losure. Encounters Encounter Providers Location Date Indications Data Source(s ) Outpatient Attender: MARGA medina 06/14/2021 09:10:00 AM EST [facility] ([facility]) Outpatient Attender: CLAUDIO PIERRE PA-C 10/18/2020 10:58:00 AM [facility] Outpatient Attender: CLAUDIO PIERRE PA-C 10/17/2020 01:19:00 PM [facility] Outpatient Attender: CLAUDIO PIERRE PA-C 10/16/2020 10:54:00 AM [facility] Outpatient Attender: CLAUDIO PIERRE PA-C 10/15/2020 09:21:00 AM [facility] Outpatient Attender: CLAUDIO PIERRE PA-C 10/14/2020 10:39:00 AM [facility] Outpatient Attender: CLAUDIO PIERRE PA-C 10/11/2020 11:23:00 AM [facility] Outpatient Attender: CLAUDIO PIERRE PA-C 10/10/2020 11:16:00 AM [facility] Outpatient Attender: CLAUDIO PIERRE PA-C 10/08/2020 09:56:00 AM [facility] Outpatient Attender: CLAUDIO PIERRE PA-C 10/07/2020 09:06:00 AM [facility] Outpatient Attender: CLAUDIO PIERRE PA-C 10/04/2020 01:40:00 PM [facility] Outpatient Attender: CLAUDIO PIERRE PA-C 10/03/2020 11:43:00 AM [facility] Outpatient Attender: CLAUDIO PIERRE PA-C 10/02/2020 11:14:00 AM [facility] Outpatient Attender: CLAUDIO PIERRE PA-C 10/01/2020 11:42:00 AM [facility] Outpatient Attender: CLAUDIO PIERRE PA-C 09/30/2020 11:19:00 AM [facility] Outpatient Attender: CLAUDIO PIERRE PA-C 09/27/2020 11:32:00 AM [facility] Outpatient Attender: CLAUDIO PIERRE PA-C 09/26/2020 11:15:00 AM [facility] Outpatient Attender: CLAUDIO PIERRE PA-C 09/25/2020 09:15:00 AM [facility] Outpatient Attender: CLAUDIO PIERRE PA-C 09/24/2020 09:29:00 AM [facility] Outpatient Attender: CLAUDIO PIERRE PA-C 09/23/2020 09:54:00 AM [facility] Outpatient Attender: CLAUDIO PIERRE PA-C 09/20/2020 09:32:00 AM [facility] Outpatient Attender: CLAUDIO PIERRE PA-C 09/19/2020 09:05:00 AM [facility] Outpatient Attender: CLAUDIO PIERRE PA-C 09/18/2020 10:43:00 AM [facility] Outpatient Attender: CLAUDIO PIERRE PA-C 09/17/2020 09:23:00 AM [facility] Outpatient Attender: LCAUDIO PIERRE PA-C 09/16/2020 09:12:00 AM [facility] Outpatient Attender: CLAUDIO PIERRE PA-C 09/13/2020 11:05:00 AM [facility] Outpatient Attender: CLAUDIO PIERRE PA-C 09/12/2020 10:48:00 AM [facility] Outpatient Attender: CLAUDIO PIERRE PA-C 09/11/2020 09:32:00 AM [facility] Outpatient Attender: CLAUDIO PIERRE PA-C 09/10/2020 10:12:00 AM [facility] Outpatient Attender: CLAUDIO PIERRE PA-C 09/09/2020 10:24:00 AM [facility] Outpatient Attender: CLAUDIO PIERRE PA-C 09/06/2020 11:34:00 AM [facility] Outpatient Attender: CLAUDIO PIERRE PA-C 09/05/2020 11:19:00 AM [facility] Outpatient Attender: CLAUDIO PIERRE PA-C 09/04/2020 10:49:00 AM [facility] Outpatient Attender: CLAUDIO PIERRE PA-C 09/03/2020 10:14:00 AM [facility] Outpatient Attender: CLAUDIO PIERRE PA-C 09/02/2020 10:34:00 AM [facility] Outpatient Attender: CLAUDIO PIERRE PA-C 08/30/2020 11:11:00 AM [facility] Outpatient Attender: CLAUDIO PIERRE PA-C 08/29/2020 10:47:00 AM [facility] Outpatient Attender: CLAUDIO PIERRE PA-C 08/28/2020 10:01:00 AM [facility] Outpatient Attender: CLAUDIO PIERRE PA-C 08/27/2020 09:29:00 AM [facility] Outpatient Attender: CLAUDIO PIERRE PA-C 08/26/2020 09:42:00 AM [facility] Outpatient Attender: CLAUDIO PIERRE PA-C 08/23/2020 09:40:00 AM [facility] Outpatient Attender: CLAUDIO PIERRE PA-C 08/22/2020 09:39:00 AM [facility] Outpatient Attender: CLAUDIO PIERRE PA-C 08/21/2020 09:12:00 AM [facility] Outpatient Attender: CLAUDIO PIERRE PA-C 08/20/2020 10:23:00 AM [facility] Outpatient Attender: CLAUDIO PIERRE PA-C 08/19/2020 11:08:00 AM [facility] Outpatient Attender: Kevyn Michelle/Maxi/Moses/Re indl 08/05/2020 01:15:00 PM EST [facility] ([facility]) Outpatient Attender: CLAUDIO MCNAMARACAttender: SINDHU KAPLANELL 07/22/2020 09:24:00 AM [facility] Medications No Information Insurance Providers Payer name Policy type / Coverage type Policy ID Covered democrat ID Covered democrat's relationship to swan Policy Swan Plan Information [facility] [employer] [id number] SP [id number] SELF PAY [facility] [id number] SP [id number] [facility] [id number] SPO [id number] [facility] [id number] S [id number] [facility] [id number] SP [id number] [facility] [id number] S [id number] [facility] [employer] [id number] SP [id number] Problems, Conditions, and Diagnoses Code Display Name Description Problem Type Effective Dates Data Source(s) F43.8 Other reactions to severe stress OTHER REACTIONS TO SEVERE STRESS Diagnosis 10/15/2020 09:21:00 AM [facility] F43.10 Post-traumatic stress disorder, unspecif ied POST-TRAUMATIC STRESS DISORDER, UNSPECIFIED Diagnosis 10/02/2020 11:14:00 AM [facility] Sur[facility]/Procedures Procedure Description Date Indications Data Source(s) OFFICE OUTPATIENT NEW 30 MINUTES 06/14/2021 12:00:00 A M EST [facility] ([facility], [facility]) Endoscopy Nasal Diagnostic 08/05/2020 12:00:00 AM EST [facility] ([facility]) Results ID Date Data Source [id number] 01/01/2021 12:00:00 AM EDT [facility] Name Value Range Interpretation Code Description Data Roxana rce(s) Supporting Document(s) SARS-CoV2 Rapid Antigen Negative [facility] by [facility] and reported by [facility]. ID Date Data Source [id number] 11/26/2020 06:17:00 PM EDT [facility] Name Value Range Interpretation Code Description Data Roxana rce(s) Supporting Document(s) SARS coronavirus 2 RNA [Presence] in Res piratory specimen by LUAN with probe detection NEGATIVE [facility] This lab was ordered by [facility] a nd reported by [facility]. Procedure Social History No Information Vital Signs ID Date Data Source UNK Name Value Range Interpretation Code Description Data Source(s) Systolic blood pressure 102 mm[Hg] 102 mm[Hg] [facility]) Diastolic blood pressure 67 mm[Hg] 67 mm[Hg] [facility] ([facility], [facility]) Heart rate 109 /min 109 /min [facility] ([facility], [facility]) Respiratory rate 14 /min 14 /min [facility] ( [facility]) Oxygen saturation in Arterial blood by Pulse oximetry 98 % 98 % [facility] ([facility]) Body temperature 99.6 [degF] 99.6 [degF] [facility] ([facility]) Body weight 125.00 [lb_av] 125.00 [lb_av] [facility] ([facility]) Body height 68 [in_i] 68 [in_i] [facility] ([facility] 5'8" Body mass index (BMI) [Ratio] 19.0 kg/m2 19.0 k g/m2 [facility] ([facility]) Body height 68 [in_i] 68 [in_i] [facility] ([facility]) 5'8" Body weight 137.00 [lb_av] 137.00 [lb_av] [facility] ([facility]) Body mass index (BMI) [Ratio] 20.8 kg/m2 20.8 k g/m2 [facility] ([facility]) [place] body weight 140 [lb_av] 140 [lb_av] [facility] T ([facility]) Body weight 62.143 kg 62.143 kg [facility] ([facility]) Body surface area Derived from formula 1.74 m2 1.74 m2 [facility] ([facility]) Body height 68 [in_i] 68 [in_i] [facility] ([facility]) 5'8" Body weight 137.00 [lb_av] 137.00 [lb_av] [facility] T ([facility]) Body mass index (BMI) [Ratio] 20.8 kg/m2 20.8 k g/m2 [facility] ([facility]) [place] body weight 140 [lb_av] 140 [lb_av] [facility] ([facility]) Body weight 62.143 kg 62.143 kg [facility] ([facility]) Body surface area Derived from formula 1.74 m2 1.74 m2 [facility] ([facility])
--- OUTSIDE RECORDS SUMMARY | 2021-06-17 09:57 | CCD | Continuity of Care Document ---
Author Author Allyssa MAGALLANES Organization Unknown Address [address] [place] [address] [place] [address] Phone [phone] Care Team Providers Care Neurology Nurse Name Role Phone Hank Barrios MD AUTM Unavailable [facility] AUT[facility] [phone] Problems Description No Information Available Social History Type Date Description Comments Sex Unknown ETOH Use Denies alcohol use Tobacco Use Start: Unknown Patient is a current smoker, smo kes every day Smoking Status Reviewed: 06/14/21 Patient is a current smoker, smokes every day Allergies and adverse reactions Description No Known Drug Allergies Medications Active Medications SIG Qnty Indications Ordering Provide r Date Hydroxyzine HCL Unknown 0 Zoloft Unknown Abilify Unknown Naltrexone HCL Unknown Immunizations Description No Information Available Vital Signs Date Vital Result Comment 06/14/2021 1:35pm BP Systolic 102 mmHg BP Diastolic 67 mmHg Heart Rate 109 /min Respiratory Rate 14 /min O2 % BldC Oximetry 98 % Body Temperature 99.6 F Weight 125.00 lb Height 68 inches 5'8" BMI (Body Mass Index) 19.0 kg/m2 Pain Level 7 Results Description No Information Available Procedures Date Code Description Status 06/14/2021 40912 Office/Outpatient New Low MDM 30 -44 Minutes Completed Medical Devices Description No Information Available Encounters Type Date Location Provider Dx Diagnosis Office Visit 06/14/2021 10:10a Main Office FRANSISCA Mejia J06 .9 Acute upper respiratory infection, unspecified Z20.828 Contact w and exposure to ot h viral communicable diseases Assessments Date Code Description Provider 06/14/2021 J06.9 Acute upper respiratory infectio n, unspecified FRANSISCA Mejia 06/14/2021 Z20.828 Contact with and (herrera spected) exposure to other viral communicable diseases FRANSISCA Mejia Plan of Treatment 06/14/2021 - FRANSISCA Mejia* J06.9 Acute upper respiratory infection, unspecified* Comments:* Rest/fluids/tylenol/motrin/time * Z20.828 Contact with and (suspected) exposure to other viral communicable diseases Functional Status Description No Information Available Mental Status Description No Information Available Referrals Refer to Reason for Referral Status Appt Date [facility] [place] [address]
--- OUTSIDE RECORDS SUMMARY | 2021-06-17 09:57 | CCD | Continuity of Care Document ---
Author Author Allyssa MAGALLANES Organization Unknown Address [address] [place] [address] [place] [address] Phone [phone] Care Team Providers Care Breakfast Bar Attendant Name Role Phone Hank Barrios MD AUTM Unavailable [facility] AUTM [phone] Problems Description No Information Available Social History [...] Available Procedures Date Code Description Status 06/14/2021 88128 Office/Outpatient New Low MDM 30 -44 Minutes [...] to Reason for Referral Status Appt Date [facility] [place] [address]
[2021-06-17] MEDS ORDERED: ZOLO100T (10:08)
[2021-06-17] MEDS ORDERED: ARIP1TAB43 (10:09)
--- OUTSIDE RECORDS SUMMARY | 2021-06-17 11:51 | CCD ---
Author Author [facility] Organization [facility] Address Unknown Phone Unavailable Care Team Providers Care Precipitator Supervisor Name Role Phone ARCELIAE, Charisse GRESHAM PA [...] A MARGA PA Unavailable Unavailable LETTIERE, A AMRGA PA Unavailable Unavailable LETTIERE, A MARGA PA [...] Unavailable LITTELL, M SINDHU DO Unavailable Unavailable GABBY, PACO CLAUDIO PA-C Unavailable Unavailable GABBY, PACO CLAUDIO PA-C Unavailable Unavailable GABBY, PACO LCAUDIO PA-C Unavailable Unavailable GABBY, PACO CLAUDIO PA-C [...] is protected by Article 27-F of the [facility] Public Health law. If you continue you may have access to information: Regarding HIV / AIDS; Provided by facilities licensed or operated by the [facility] Office of Mental Health; or Provided by the [facility] Office for People With Developmental Disabilities. If such information is present, then the following [facility] mandated warning applies: This information has been [...] law may result in a fine or mcfp sentence or both. A general authorization for the release of medical or other information is NOT sufficient authorization for further disc losure. Encounters Encounter Providers Location Date Indications Data Source(s ) Outpatient Attender: MARGA medina 06/14/2021 09:10:00 AM EST [facility] ([facility]) Outpatient Attender: CLAUDIO PIERRE PA-C 10/18/2020 10:58:00 AM [facility] Outpatient Attender: CLAUDIO PIERRE PA-C 10/17/2020 01:19:00 PM [facility] Outpatient Attender: CLAUDIO PIERRE PA-C 10/16/2020 10:54:00 AM [facility] Outpatient Attender: CLAUDIO PIERRE PA-C 10/15/2020 09:21:00 AM [facility] Outpatient Attender: CLAUDIO PIERRE PA-C 10/14/2020 10:39:00 AM [facility] Outpatient Attender: CLAUDIO IPERRE PA-C 10/11/2020 11:23:00 AM [facility] Outpatient Attender: CLAUDIO PIERRE PA-C 10/10/2020 11:16:00 AM [facility] Outpatient Attender: CLAUDIO PIERRE PA-C 10/08/2020 09:56:00 AM [facility] Outpatient Attender: CLAUDIO PIERRE PA-C 10/07/2020 09:06:00 AM [facility] Outpatient Attender: CLAUDIO PIERRE PA-C 10/04/2020 01:40:00 PM [facility] Outpatient Attender: CLAUDIO PIERRE PA-C 10/03/2020 11:43:00 AM [facility] Outpatient Attender: CLAUDIO PIERRE PA-C 10/02/2020 11:14:00 AM [facility] Outpatient Attender: CLAUDIO PIERRE PA-C 10/01/2020 11:42:00 AM [facility] Outpatient Attender: CLAUDIO PIERRE PA-C 09/30/2020 11:19:00 AM [facility] Outpatient Attender: CLAUDIO PIERRE PA-C 09/27/2020 11:32:00 AM [facility] Outpatient Attender: CLAUDIO PIERRE PA-C 09/26/2020 11:15:00 AM [facility] Outpatient Attender: CLAUDIO PIERRE PA-C 09/25/2020 09:15:00 AM [facility] Outpatient Attender: CLAUDIO PIERRE PA-C 09/24/2020 09:29:00 AM [facility] Outpatient Attender: CLAUDIO PIERRE PA-C 09/23/2020 09:54:00 AM [facility] Outpatient Attender: CLAUDIO PIERRE PA-C 09/20/2020 09:32:00 AM [facility] Outpatient Attender: CLAUDIO PIERRE PA-C 09/19/2020 09:05:00 AM [facility] Outpatient Attender: CLAUDIO PIERRE PA-C 09/18/2020 10:43:00 AM [facility] Outpatient Attender: CLAUDIO PIERRE PA-C 09/17/2020 09:23:00 AM [facility] Outpatient Attender: CLAUDIO PIERRE PA-C 09/16/2020 09:12:00 AM [facility] Outpatient Attender: CLAUDIO PIERRE PA-C 09/13/2020 11:05:00 AM [facility] Outpatient Attender: CLAUDIO PIERRE PA-C 09/12/2020 10:48:00 AM [facility] Outpatient Attender: CLAUDIO PIERRE PA-C 09/11/2020 09:32:00 AM [facility] Outpatient Attender: CLAUDIO PIERRE PA-C 09/10/2020 10:12:00 AM [facility] Outpatient Attender: CLAUDIO PIERRE PA-C 09/09/2020 10:24:00 AM [facility] Outpatient Attender: CLAUDIO PIERRE PA-C 09/06/2020 11:34:00 AM [facility] Outpatient Attender: CLAUDIO PIERRE PA-C 09/05/2020 11:19:00 AM [facility] Outpatient Attender: CLAUDIO PIERRE PA-C 09/04/2020 10:49:00 AM [facility] Outpatient Attender: CLAUDIO PIERRE PA-C 09/03/2020 10:14:00 AM [facility] Outpatient Attender: CLAUDIO PIERRE PA-C 09/02/2020 10:34:00 AM [facility] Outpatient Attender: CLAUDIO PIERRE PA-C 08/30/2020 11:11:00 AM [facility] Outpatient Attender: CLAUDIO PIERRE PA-C 08/29/2020 10:47:00 AM [facility] Outpatient Attender: CLAUDIO PIERRE PA-C 08/28/2020 10:01:00 AM [facility] Outpatient Attender: CLAUDIO PIERRE PA-C 08/27/2020 09:29:00 AM [facility] Outpatient Attender: CLAUDIO PIERRE PA-C 08/26/2020 09:42:00 AM [facility] Outpatient Attender: CLAUDIO PIERRE PA-C 08/23/2020 09:40:00 AM [facility] Outpatient Attender: CLAUDIO PIERRE PA-C 08/22/2020 09:39:00 AM [facility] Outpatient Attender: CLAUDIO PIERRE PA-C 08/21/2020 09:12:00 AM [facility] Outpatient Attender: CLAUDIO PIERRE PA-C 08/20/2020 10:23:00 AM [facility] Outpatient Attender: CLAUDIO PIERRE PA-C 08/19/2020 11:08:00 AM [facility] Outpatient Attender: Kevyn Michelle/Maxi/Moses/Re indl 08/05/2020 01:15:00 PM EST [facility] ([facility] Outpatient Attender: CLAUDIO MCNAMARACAttender: SINDHU KAPLANELL 07/22/2020 09:24:00 AM [facility] Medications No Information Insurance Providers Payer name Policy type / Coverage type Policy ID Covered constitution party ID Covered constitution party's relationship to swan Policy Swan Plan Information [facility] ACTIVE DUTY [id number] SP [id number] SELF PAY [facility] [id number] SP [id number] [facility] [id number] SPO [id number] [facility] [id number] S [id number] [facility] [id number] SP [id number] [facility] [id number] S [id number] [facility] [employer] [id number] SP [id number] Problems, Conditions, and Diagnoses Code Display Name Description Problem Type Effective Dates Data Source(s) F43.8 Other reactions to severe stress OTHER REACTIONS TO SEVERE STRESS Diagnosis 10/15/2020 09:21:00 AM [facility] F43.10 Post-traumatic stress disorder, unspecif ied POST-TRAUMATIC STRESS DISORDER, UNSPECIFIED Diagnosis 10/02/2020 11:14:00 AM [facility] Surgeries/Procedures Procedure Description Date Indications Data Source(s) OFFICE OUTPATIENT NEW 30 MINUTES 06/14/2021 12:00:00 A M EST [facility] ([facility], [facility]) Endoscopy Nasal Diagnostic 08/05/2020 12:00:00 AM EST [facility] ([facility]) Results ID Date Data Source [id number] 01/01/2021 12:00:00 AM EDT [facility] Name Value Range Interpretation Code Description Data Roxana rce(s) Supporting Document(s) SARS-CoV2 Rapid Antigen Negative [facility] This lab was ordered by [facility] and reported by [facility]. ID Date Data Source [id number] 11/26/2020 06:17:00 PM EDT [facility] Name Value Range Interpretation Code Description Data Roxana rce(s) Supporting Document(s) SARS coronavirus 2 RNA [Presence] in Res piratory specimen by LUAN with probe detection NEGATIVE [facility] This lab was ordered by [facility] a nd reported by [facility]. Procedure Social History No Information Vital Signs ID Date Data Source UNK Name Value Range Interpretation Code Description Data Source(s) Systolic blood pressure 102 mm[Hg] 102 mm[Hg] [facility]) Diastolic blood pressure 67 mm[Hg] 67 mm[Hg] [facility] ([facility], [facility]) Heart rate 109 /min 109 /min [facility] ([facility], [facility]) Respiratory rate 14 /min 14 /min [facility] ( [facility]) Oxygen saturation in Arterial blood by Pulse oximetry 98 % 98 % [facility] ([facility]) Body temperature 99.6 [degF] 99.6 [degF] [facility] ([facility]) Body weight 125.00 [lb_av] 125.00 [lb_av] [facility] ([facility]) Body height 68 [in_i] 68 [in_i] [facility] ([facility]) 5'8" Body mass index (BMI) [Ratio] 19.0 kg/m2 19.0 k g/m2 [facility] ([facility]) Body height 68 [in_i] 68 [in_i] [facility] ([facility]) 5'8" Body weight 137.00 [lb_av] 137.00 [lb_av] [facility] ([facility]) Body mass index (BMI) [Ratio] 20.8 kg/m2 20.8 k g/m2 [facility] ([facility]) [place] body weight 140 [lb_av] 140 [lb_av] [facility] T ([facility]) Body weight 62.143 kg 62.143 kg [facility] ([facility]) Body surface area Derived from formula 1.74 m2 1.74 m2 [facility] ([facility]) Body height 68 [in_i] 68 [in_i] [facility] ([facility]) 5'8" Body weight 137.00 [lb_av] 137.00 [lb_av] [facility] T ([facility]) Body mass index (BMI) [Ratio] 20.8 kg/m2 20.8 k g/m2 [facility] ([facility]) [place] body weight 140 [lb_av] 140 [lb_av] [facility] T ([facility]) Body weight 62.143 kg 62.143 kg [facility] ([facility]) Body surface area Derived from formula 1.74 m2 1.74 m2 [facility] ([facility])
[2021-06-17 12:29] VITALS: BP 103/65
== END 2021-06-17 12:36 | disposition home or self-care (01) ==
LOC: M ED 09:49
DX: J12.2 Parainfluenza virus pneumonia (principal); Z79.899 Other long term (current) drug therapy

== ENCOUNTER 2022-07-15 05:44 | Emergency (ER) | payer OTHER ==
[~2022-07-15] VITALS: Ht 172.7 cm; Wt 67.3 kg
[~2022-07-15 05:44] MED LIST changes: +ARIP1TAB43; +TIZA10TA; -TIZA4TAB4; +ZOLO100T
[2022-07-15] MEDS ORDERED: ACETAMINOPHEN 325 MG TAB PO ONE (07:05)
[2022-07-15] MEDS ORDERED: NS 1,000 ML IV ONE (07:05)
[2022-07-15 07:43] LABS: BASO % 0.4 % (0.0-1.0); EOS # 0.1 10^3/uL (0.0-0.5); EOS % 1.1 % (0.0-3.0); HEMATOCRIT 36.9 % (36.0-47.0); HEMOGLOBIN 12.2 g/dl (12.0-15.5); LYMPH # 0.3 10^3/uL (1.5-5.0); LYMPH % 5.8 % (24.0-44.0); MEAN CORPUSCULAR HEMOGLOBIN 30.7 pg (27.0-33.0); MEAN CORPUSCULAR HGB CONC 33.1 g/dl (32.0-36.5); MEAN CORPUSCULAR VOLUME 92.9 fl (80.0-96.0); MONO # 0.4 10^3/uL (0.0-0.8); MONO % 7.9 % (2.0-8.0); NEUTROPHILS # 4.7 10^3/uL (1.5-8.5); NEUTROPHILS % 84.3 % (36.0-66.0); PLATELET COUNT, AUTOMATED 204 10^3/uL (150-450); RED BLOOD COUNT 3.97 10^6/uL (4.00-5.40); WHITE BLOOD COUNT 5.6 10^3/uL (4.0-10.0)
[2022-07-15 08:04] LABS: ALBUMIN 3.9 G/DL (3.2-5.2); ALKALINE PHOSPHATASE 81 U/L (46-116); ALT/SGPT 11 U/L (7.0-40); AST/SGOT 12 U/L (<34); BILIRUBIN,TOTAL 0.4 MG/DL (0.3-1.2); BLOOD UREA NITROGEN 6 MG/DL (9-23); CALCIUM LEVEL 8.8 MG/DL (8.5-10.1); CARBON DIOXIDE LEVEL 24 MMOL/L (20-31); CHLORIDE LEVEL 104 MMOL/L (98-107); CREATININE FOR GFR 0.63 MG/DL (0.55-1.30); GLOMERULAR FILTRATION RATE > 60.0 (>60); GLUCOSE, FASTING 92 MG/DL (60-100); POTASSIUM SERUM 3.8 MMOL/L (3.5-5.1); SODIUM LEVEL 138 MMOL/L (136-145); TOTAL PROTEIN 7.1 G/DL (5.7-8.2)
[2022-07-15 08:17] LABS: HCG, SERUM QUANTITATIVE 13525.2 MIU/ML (<4.2)
[2022-07-15] MEDS ORDERED: ONDA4TAB6 PO (09:15)
[2022-07-15 09:50] VITALS: BP 104/54
== END 2022-07-15 10:14 | disposition home or self-care (01) ==
LOC: M ED 05:44
DX: O98.511 Other viral diseases complicating pregnancy, first trimester (principal); J09.X2 Influenza due to identified novel influenza A virus with other respiratory manifestations; O26.891 Other specified pregnancy related conditions, first trimester; R51.9 Headache, unspecified; R10.9 Unspecified abdominal pain; O99.341 Other mental disorders complicating pregnancy, first trimester; F43.10 Post-traumatic stress disorder, unspecified; F60.3 Borderline personality disorder; M41.9 Scoliosis, unspecified; Z87.820 Personal history of traumatic brain injury; F17.200 Nicotine dependence, unspecified, uncomplicated; Z3A.00 Weeks of gestation of pregnancy not specified; Z79.899 Other long term (current) drug therapy

== ENCOUNTER 2022-07-31 20:34 | Emergency (ER) | payer OTHER ==
[~2022-07-31] VITALS: Ht 172.7 cm; Wt 68.1 kg
[~2022-07-31 20:34] MED LIST changes: +ONDA4TAB6 PO
[2022-07-31 23:35] LABS: BASO % 0.3 % (0.0-1.0); EOS # 0.2 10^3/uL (0.0-0.5); EOS % 2.4 % (0.0-3.0); HEMATOCRIT 34.7 % (36.0-47.0); HEMOGLOBIN 11.4 g/dl (12.0-15.5); LYMPH # 2.2 10^3/uL (1.5-5.0); LYMPH % 23.4 % (24.0-44.0); MEAN CORPUSCULAR HEMOGLOBIN 30.3 pg (27.0-33.0); MEAN CORPUSCULAR HGB CONC 32.9 g/dl (32.0-36.5); MEAN CORPUSCULAR VOLUME 92.3 fl (80.0-96.0); MONO # 0.8 10^3/uL (0.0-0.8); MONO % 8.3 % (2.0-8.0); NEUTROPHILS # 6.1 10^3/uL (1.5-8.5); NEUTROPHILS % 65.2 % (36.0-66.0); PLATELET COUNT, AUTOMATED 348 10^3/uL (150-450); RED BLOOD COUNT 3.76 10^6/uL (4.00-5.40); WHITE BLOOD COUNT 9.3 10^3/uL (4.0-10.0)
[2022-08-01 00:06] LABS: BLOOD UREA NITROGEN 8 MG/DL (9-23); CALCIUM LEVEL 9.7 MG/DL (8.5-10.1); CARBON DIOXIDE LEVEL 26 MMOL/L (20-31); CHLORIDE LEVEL 102 MMOL/L (98-107); CREATININE FOR GFR 0.59 MG/DL (0.55-1.30); GLOMERULAR FILTRATION RATE > 60.0 (>60); GLUCOSE, FASTING 93 MG/DL (60-100); POTASSIUM SERUM 4.3 MMOL/L (3.5-5.1); SODIUM LEVEL 137 MMOL/L (136-145)
[2022-08-01 00:15] LABS: RSV AMPLIFICATION NEGATIVE (NEGATIVE)
[2022-08-01 02:30] VITALS: BP 107/60
[2022-08-01] MEDS ORDERED: ONDA4TAB6 PO (03:42)
[2022-08-01] MEDS ORDERED: BENZ200C70 PO (03:42)
[2022-08-01] MEDS ORDERED: BENZONATATE 100MG CAPSULE PO ONE (03:45)
[2022-08-01] MEDS ORDERED: ONDANSETRON 4MG ORAL DISINTEGRATING TAB PO ONE (03:45)
== END 2022-08-01 04:03 | disposition home or self-care (01) ==
LOC: M ED 20:34
DX: O99.511 Diseases of the respiratory system complicating pregnancy, first trimester (principal); J06.9 Acute upper respiratory infection, unspecified; Z3A.01 Less than 8 weeks gestation of pregnancy; Z79.899 Other long term (current) drug therapy

== ENCOUNTER 2022-08-24 10:29 | Emergency (ER) | payer OTHER ==
[~2022-08-24] VITALS: Ht 172.7 cm; Wt 68.3 kg
[~2022-08-24 10:29] MED LIST changes: +BENZ200C70 PO
[2022-08-24 13:59] LABS: BASO % 0.4 % (0.0-1.0); EOS # 0.2 10^3/uL (0.0-0.5); EOS % 2.7 % (0.0-3.0); HEMATOCRIT 38.4 % (36.0-47.0); HEMOGLOBIN 12.4 g/dl (12.0-15.5); LYMPH # 1.6 10^3/uL (1.5-5.0); LYMPH % 19.7 % (24.0-44.0); MEAN CORPUSCULAR HEMOGLOBIN 30.3 pg (27.0-33.0); MEAN CORPUSCULAR HGB CONC 32.3 g/dl (32.0-36.5); MEAN CORPUSCULAR VOLUME 93.9 fl (80.0-96.0); MONO # 0.5 10^3/uL (0.0-0.8); MONO % 6.6 % (2.0-8.0); NEUTROPHILS # 5.7 10^3/uL (1.5-8.5); NEUTROPHILS % 70.1 % (36.0-66.0); PLATELET COUNT, AUTOMATED 249 10^3/uL (150-450); RED BLOOD COUNT 4.09 10^6/uL (4.00-5.40); WHITE BLOOD COUNT 8.1 10^3/uL (4.0-10.0)
[2022-08-24 14:10] VITALS: BP 124/59
[2022-08-24 14:12] LABS: BLOOD UREA NITROGEN 6 MG/DL (9-23); CALCIUM LEVEL 8.9 MG/DL (8.5-10.1); CARBON DIOXIDE LEVEL 26 MMOL/L (20-31); CHLORIDE LEVEL 105 MMOL/L (98-107); CREATININE FOR GFR 0.47 MG/DL (0.55-1.30); GLOMERULAR FILTRATION RATE > 60.0 (>60); GLUCOSE, FASTING 80 MG/DL (60-100); POTASSIUM SERUM 4.2 MMOL/L (3.5-5.1); SODIUM LEVEL 139 MMOL/L (136-145)
[2022-08-24 14:25] LABS: HCG, SERUM QUANTITATIVE 7594.9 MIU/ML (<4.2)
[2022-08-24] MEDS ORDERED: NITR1CAP11 PO (15:12)
[2022-08-24] MEDS ORDERED: METR-265 PO (15:12)
[2022-08-24 16:45] LABS: GC DNA AMPLIFICATION NEGATIVE (NEGATIVE)
== END 2022-08-24 16:10 | disposition home or self-care (01) ==
LOC: M ED 10:29
DX: O03.9 Complete or unspecified spontaneous abortion without complication (principal); N39.0 Urinary tract infection, site not specified; Z79.899 Other long term (current) drug therapy

== ENCOUNTER → 2022-09-07 | Outpatient (CLI) | payer OTHER ==
[~2022-09-07] MED LIST changes: +METR-265 PO; +NITR1CAP11 PO
== END ==
LOC: M PLALAB 13:38
PROVIDERS: ATTEND Obstetrics & Gynecology
DX: O03.9 Complete or unspecified spontaneous abortion without complication (principal)

== ENCOUNTER → 2023-01-01 | Outpatient (CLI) | payer OTHER | LOC: M PLALAB 11:58 | PROVIDERS: ATTEND Advanced Practice Midwife | DX: Z34.90 Encounter for supervision of normal pregnancy, unspecified, unspecified trimester (principal) ==

== ENCOUNTER → 2023-01-04 | Outpatient (CLI) | payer OTHER | LOC: M PLALAB 16:17 | PROVIDERS: ATTEND Advanced Practice Midwife | DX: Z34.90 Encounter for supervision of normal pregnancy, unspecified, unspecified trimester (principal) ==

== ENCOUNTER → 2023-01-22 | Outpatient (CLI) | payer OTHER ==
[2023-01-22 18:12] LABS: HEMATOCRIT 36.2 % (36.0-47.0); HEMOGLOBIN 11.4 g/dl (12.0-15.5); MEAN CORPUSCULAR HGB CONC 31.5 g/dl (32.0-36.5); MEAN CORPUSCULAR VOLUME 88.9 fl (80.0-96.0); PLATELET COUNT, AUTOMATED 282 10^3/uL (150-450); RED BLOOD COUNT 4.07 10^6/uL (4.00-5.40); WHITE BLOOD COUNT 8.6 10^3/uL (4.0-10.0)
[2023-01-22 18:54] LABS: HIV 1&2 SCREEN NEGATIVE (NEGATIVE)
[2023-01-22 19:02] LABS: HEPATITIS C VIRUS ABY INDEX 0.08 INDEX (<0.8)
[2023-01-22 19:47] LABS: GC DNA AMPLIFICATION NEGATIVE (NEGATIVE)
== END ==
LOC: M PLALAB 13:22
PROVIDERS: ATTEND Specialist
DX: Z34.81 Encounter for supervision of other normal pregnancy, first trimester (principal)